=== PATIENT | female | born 1945 | race Caucasian/White ===

== ENCOUNTER 2019-12-30 15:34 | Emergency (ER) | payer MEDICARE, OTHER, SELFPAY ==
[2019-12-30 15:35] VITALS: BP 147/85; PULSE 70; RESP 19; TEMP 36.8; O2SAT 97; BMI 29.2
--- NOTE | 2019-12-30 15:40 | RAD_ITS ---
STUDY: X-RAY - LEFT SHOULDER REASON FOR EXAM: Female, 74 years old. FALL TECHNIQUE: 2 view(s) of the shoulder. COMPARISON: None. FINDINGS: There is moderate degenerative arthrosis of the glenohumeral articulation. There is degenerative arthrosis of the acromioclavicular joint without inferior osseous spur formation. Normal acromion. Nondisplaced spiral fracture through the proximal shaft of the left humerus. The soft tissue structures are unremarkable. Normal visualized pulmonary apex. RAD/Shoulder min 2 Views IMPRESSION: Nondisplaced spiral fracture through the proximal shaft of the left humerus. Electronically Signed: Fili Orr, at 15:53 EST , Service support ,
--- NOTE | 2019-12-30 16:40 | ED.VIS.UPPEX ---
History of Present Illness Chief Complaint: Fall Narrative: Patient presenting for evaluation secondary to a fall with a left arm injury. Patient reports that she had forgotten her cell phone and was trying to go back into the house and suffered a fall while she was going up stairs. She landed forcibly on her left arm. She denies hitting her head or loss of consciousness. No numbness or weakness. She is not on any sort of anticoagulants. She reports a moderate to severe amount of pain in her left arm worse with palpation and movement. Review of systems otherwise negative. Past Medical History - Allergies and Home Meds Allergies/Adverse Reactions: Allergies iodine Allergy (Verified 12/30/19 15:34) Swelling Primary Care Physician: Christie Martinez MD [Primary Care Provider] - Prior records reviewed: Yes Past Medical History: - - Hypertension, GERD, hyperlipidemia Smoking Status: Former smoker Review of Systems All systems negative except as indicated General: Denies: Chills, Fever, Sweats Eyes: Denies: Visual changes - bilaterally, Diplopia ENT: Denies: Rhinorrhea, Sore throat Cardiovascular: Denies: Chest pain, Palpitations Respiratory: Denies: Dyspnea, Cough, Dyspnea on exertion Gastrointestinal: Denies: Abdominal pain, Nausea, Vomiting, Diarrhea, Melena, Hematochezia Genitourinary: Denies: Dysuria, Hematuria, Frequency Musculoskeletal: Reports: Extremity Pain Skin: Denies: Rash, Wounds Neurological: Denies: Headache, Weakness, Numbness Physical Exam Vital Signs/Narrative: Vital Signs Temp Pulse Resp BP Pulse Ox 12/30/19 15:35 98.2 F 70 19 H 147/85 H 97 Inital Vital Signs reviewed: Yes Left Humerus: - - Pain on palpation of the proximal humerus with some swelling noted in the area. No significant deformity. Limited range of motion secondary to pain. Normal sensation over all dermatomes distally normal distal pulses. Normal distal motor and sensory exam of the radian, medial, and ulnar nerve dis General: Well nourished, Well developed, - - Airways patent, breath sounds equal bilateral, 2+ peripheral pulses bilaterally symmetric. GCS 15 out of 15. Head: Normocephalic, Atraumatic Eyes: Perrl, EOMI ENT: No Trauma, Moist Mucous Membranes Neck: Nontender, Full ROM Cardiovascular: Regular rate, Regular rhythm, No murmurs Respiratory: No distress, CTA bilaterally, Chest nontender Abdomen: Soft, Nontender, Nondistended, Normal bowel sounds Back: Nontender Skin: Normal color, No rash Neurological: Alert, Oriented x3, Cranial nerves II-XII grossly intact, Normal Strength, Normal Sensation Psychological: Normal affect Diagnostic/Tx/Re-eval Clinical Impression(s) from Imaging Studies Shoulder X-Ray 12/30/19 15:40 IMPRESSION: Nondisplaced spiral fracture through the proximal shaft of the left humerus. Electronically Signed: Fili Orr, at 15:53 EST , Service support , - Medical Decision Making Patient presented secondary to a arm injury. Primary survey required no intervention, secondary survey showed only injury to the patient's left arm. Radiographs by my personal review as well as radiology show a proximal humerus fracture. Patient was immobilized in a sling and swath. Patient requested referral to Dr. Dean. She will be discharged with a course of [place] for treatment of pain. ED Disposition - Plan for ED Patient: Disposition: Home or Assisted Living Diagnosis: Left humeral fracture Instructions: ED Fracture Upper Extremity Prescriptions: Hydrocodone Bitart/Apap 5-325 [[place] 5MG-325MG] 1 tab PO Q6H PRN PRN 3 Days #12 tab PRN Reason: Pain Prescription Printed Referrals: Trish Dean DO [STAFF PHYSICIAN] - As soon as possible
== END 2019-12-30 17:24 | disposition home or self-care (01) ==
PROVIDERS: Emergency Provider Emergency Medicine; PCP Internal Medicine
DX: S42.345A Nondisplaced spiral fracture of shaft of humerus, left arm, initial encounter for closed fracture (principal); E78.5 Hyperlipidemia, unspecified; K21.9 Gastro-esophageal reflux disease without esophagitis; I10 Essential (primary) hypertension; Z87.891 Personal history of nicotine dependence; W18.30XA Fall on same level, unspecified, initial encounter; Y93.01 Activity, walking, marching and hiking; Y92.009 Unspecified place in unspecified non-institutional (private) residence as the place of occurrence of the external cause; Y99.8 Other external cause status
CPT/HCPCS: 73030; 99284

== ENCOUNTER 2020-01-03 20:41 | Emergency (ER) | payer MEDICARE, OTHER, SELFPAY ==
[2020-01-03 20:42] VITALS: BP 152/112; PULSE 82; RESP 16; TEMP 37.1; O2SAT 96; BMI 35.2
--- NOTE | 2020-01-03 21:06 | ED.VIS.GEN ---
History of Present Illness Chief Complaint: Upper Extremity Injury Informant: Patient Narrative: 74-year-old female with past medical history of hypertension presents with concern for arm fracture. Patient had a fracture of her humerus on 12/29 which was 4 days ago. Patient was referred to orthopedic surgery. They contacted her today and stated that she needed traumatic orthopedic surgeon for surgical repair. Patient did not want to go to [place]. States that she is having swelling of her left arm and was concerned so called EMS. Past Medical History - Allergies and Home Meds Allergies/Adverse Reactions: Allergies iodine Allergy (Verified 01/03/20 20:48) Swelling Primary Care Physician: Christie Martinez MD [Primary Care Provider] - Prior records reviewed: Yes Past Medical History: - - HTN Surgical History: noncontributory Lives: Spouse/ Significant Other Smoking Status: Unknown if ever smoked Alcohol: None Drugs: None Review of Systems General: Denies: Chills, Fever, Sweats Eyes: Denies: Visual changes - bilaterally, Diplopia ENT: Denies: Rhinorrhea, Sore throat Cardiovascular: Denies: Chest pain, Palpitations Respiratory: Denies: Dyspnea, Cough, Dyspnea on exertion Gastrointestinal: Denies: Abdominal pain, Nausea, Vomiting, Diarrhea, Melena, Hematochezia Genitourinary: Denies: Dysuria, Hematuria, Frequency Musculoskeletal: Reports: Arthralgias. Denies: Back pain, Extremity Pain Skin: Denies: Rash, Wounds Neurological: Denies: Headache, Weakness, Numbness Physical Exam Vital Signs/Narrative: Vital Signs Temp Pulse Resp BP Pulse Ox 01/03/20 20:42 98.8 F 82 16 152/112 H 96 General: Well nourished, Well developed, No Acute Distress Head: Normocephalic, Atraumatic Eyes: Perrl, EOMI ENT: Moist mucous membranes, No rhinorrhea Neck: Supple, Nontender Cardiovascular: Regular rate, Regular rhythm, No murmurs Respiratory: No distress, CTA bilaterally, Chest nontender Abdomen: Soft, Nontender, Nondistended, Normal bowel sounds Back: Nontender, Normal Inspection Extremities: - - Left arm in sling. Strong palpable pulse. Mild edema. Skin: Normal color, No rash Neurological: Alert, Oriented x3, Cranial nerves II-XII grossly intact, Normal Strength, Normal Sensation Psychological: Normal affect, Normal Mood Diagnostic/Tx/Re-eval - Medical Decision Making Appears well and nontoxic. Vital signs within normal limits. Patient will be placed back in her sling and swath. Patient be given Dr. Mariely Watt to follow-up with. Asked to return for new or worsening symptoms. Impression: 1. Left humerus fracture ED Disposition - Plan for ED Patient: Disposition: Home or Assisted Living Instructions: ED Fracture Upper Extremity Referrals: Christie Martinez MD [Primary Care Provider] - 2 Days Additional Instructions: Please follow up with Dr. Mariely Watt. Call [phone] tomorrow for follow up appointment.
== END 2020-01-03 21:27 | disposition home or self-care (01) ==
PROVIDERS: Emergency Provider Emergency Medicine; PCP Internal Medicine
DX: S42.302D Unspecified fracture of shaft of humerus, left arm, subsequent encounter for fracture with routine healing (principal); I10 Essential (primary) hypertension; Z79.899 Other long term (current) drug therapy; X58.XXXD Exposure to other specified factors, subsequent encounter
CPT/HCPCS: 99284

== ENCOUNTER 2020-06-04 16:00 | Outpatient (RCR) | payer MEDICARE, OTHER, SELFPAY ==
--- NOTE | 2020-02-29 14:16 | HP.PTEVAL ---
Patient's Visit Information IRENE DIGGS is a 74 year old F referred to Physical Therapy by Out of Town Doctor with a diagnosis of Bilateral Shoulder- Closed Fracture of proximal end of left humerus. Date of Evaluation: 02/29/20 Physical Therapist: Emperatriz Fortune DPT - Visit Plan Frequency: 2x /Week Duration: 4 Weeks Plan: Focus on ROM on the left UE and strength/stabilization bilateral shoulders and postural control - Subjective Patient reports that she fell 12-30-2019 in her garage- and she called the squad- took her to [place]- she had a break of the humerus in the left- they discharged her to a MD in [place] and then they transfered her to trauma at [place]. Surgery at [facility] January [address] Winter. She had home therapy and then they think she is ready for outpatient- was discharged Thursday. She reports that the arm is doing well. She has recovered decent range of motion and she also has problems on her right shoulder. Left: doesn't think its pain more discomfort- most of the time painfree. Right hand dominate. Right: Worst: 5/10 Best: 0/10. Has been doing exercises for it. Its worse in the AM and reaching. No new N/T in the fingers. When she does have pain its more in the shoulder-does not radiate. No neck pain, blurred vision or dizziness- no loss of finger dexterity or project admin strength. Sleep: not disturned- is sleeping in a lift chair. Goals: get the arm back to as good as she can get it which should be pretty good. Did give her a home exericise program and is using the pulleys daily. PMHx/Meds: no changes. - Objective Posture: FH, RS- can correct with verbal cues. Gait: no deviation noted good arm swing and trunk rotation. Palpation: not tender. Observation: incision healing well. ROM: Right: WFL in all planes Left:Flexion: 100 degrees Abd: 70 degrees, IR: belt line ER: 40 degrees. Bilateral Elbow/Wrist/Hand: WNL. Strength: Scap: fair minus, Right: 4-/5 throughout shoulder, 4+/5 elbow Oven Builder: 40/40/40 Left: Shoulder: 4/5, Elbow: 4+/5, Oven Builder 40/40/40. Special Test: Right: impingment: negative, Empty can: positive. Sensation: WNL - Goals Goal 1:: Patient will be I with HEP and progression Goal Time Frame: 4-6 Weeks Goal 2:: Patient will demo full AROM of the left shoulder Goal Time Frame: 4-6 Weeks Goal 3:: Patient will maintain proper posture t/o tx session to demo increase scap s/s. Goal Time Frame: 4-6 Weeks Goal 4:: Patient will report no pain for 1 week Goal Time Frame: 4-6 Weeks - Rehabilitation Potential Physical Therapy Diagnosis: Patient presents s/p fall with fracture and repair to the left humerus. She has decreased ROM,strength, flex and muscular endurance leading to poor posture and increased pain with ADL's. Rehabilitation Potential: Fair - Anticipated Interventions Patient/Client Instruction: Educate patient on: Benefits of Fitness Program Therapeutic Exercise to Include: Strength training, Endurance training, Agility training, Body mechanics, Postural training, Flexibilty training, Neuromotor development, Passive ROM, Active ROM, Dynamic Lumbar Stabilization, Scapular Strength/Stabilization For the Purpose of:: To improve muscle performance and motor function TENS: Yes Cryotherapy (ice pack, ice massage): Yes Thermo therapy (hot pack): Yes Ultrasound (thermal/non thermal): No Thank you for the opportunity to evaluate your patient. For Medicare and Medicare HMO plans, please review the plan of care and approve it. It will need to be FAXED BACK to us at [phone] for Medicare purposes. For Medicare only, by signing this I certify the plan of care. Please let me know if there are questions or concerns regarding this plan of care. Physician Signature: Date:
--- NOTE | 2020-06-04 16:24 | HP.PTDCSUM_ITS ---
It has been my pleasure to treat IRENE DIGGS referred by Dr. Ebonie Winter MD, with the diagnosis of Bilateral Shoulder- Closed Fracture of proximal end of left humerus for a total of 15 visit(s). Discharge Date: Please see the following information for a summary of their discharge status. Subjective: Patient reports that she can reach her cupboards better. She has lumps and bumps in the arm that give her a little bit of sensation. Still sleeping in the reclyner. The top shelf if the cupboard is tricky but she can do it with caution. She has discomfort but not painful. L UE Pain Intensity (Out of 10): Unrated % Improvement: 85 Objective/Function: Posture: FH, RS- can correct with verbal cues. Gait: no deviation noted good arm swing and trunk rotation. ROM: Right: WFL in all planes Left:Flexion: 120 degrees Abd: 100 degrees, IR: belt line ER: 45 degrees. Bilateral Elbow/Wrist/Hand: WNL. Strength: Scap: fair, Right: 4/5 throughout shoulder, 4+/5 elbow Manager Operations And Procurement: Left: Shoulder: 4/5, Elbow: 4+/5, Goal 1:: Patient will be I with HEP and progression Goal Progress: Goal Met Goal 2:: Patient will demo full AROM of the left shoulder Goal Progress: Progressing Goal 3:: Patient will maintain proper posture t/o tx session to demo increase scap s/s. Goal Progress: Progressing Goal 4:: Patient will report no pain for 1 week Goal Progress: Progressing Plan: Discharge to I home exercise program- encouraged to call if questions or concners. If there are questions or concerns regarding this patient's physical therapy, please feel free to call me at [phone]. Thank you for the referral of this patient. Sincerely, Emperatriz Fortune DPT
== END 2020-06-04 19:00 | disposition home or self-care (01) ==
LOC: PT 16:00
PROVIDERS: PCP Internal Medicine; Referring Provider Orthopaedic Surgery Hand Surgery; Visit Provider Orthopaedic Surgery Hand Surgery
DX: S42.202D Unspecified fracture of upper end of left humerus, subsequent encounter for fracture with routine healing (principal); M89.8X9 Other specified disorders of bone, unspecified site
CPT/HCPCS: 97110; 97162; 97164

== ENCOUNTER 2021-05-05 19:21 | Emergency (ER) | payer MEDICARE, OTHER, SELFPAY ==
[2021-05-05 19:23] VITALS: BP 169/16; PULSE 73; RESP 16; TEMP 36.4; O2SAT 96; BMI 28.8
--- NOTE | 2021-05-05 19:39 | EKG12_ITS ---
Test Reason : HYPERTENSION Blood Pressure : / mmHG Vent. Rate : 058 BPM Atrial Rate : 058 BPM P-R Int : 224 ms QRS Dur : 088 ms QT Int : 432 ms P-R-T Axes : 044 018 048 degrees QTc Int : 424 ms Sinus bradycardia with 1st degree A-V block Otherwise normal ECG Confirmed by KENTON BOYD, DAVID ([id number]), clinical editor KEY PACHECO ([id number]) on 05/07/2021 9:43:39 AM Referred By: ADALBERTO Confirmed By:DAVID FUNG MD
--- NOTE | 2021-05-05 19:40 | EDS_ITS ---
HPI History of Present Illness Chief Complaint: Hypertension Detail of Chief Complaint: Hypertension that was noted today Informant: patient Narrative Narrative: Patient presents to the emergency department complaining of high blood pressure. Patient states that she was having dinner with a friend who noticed that she was flushed and then asked to check her blood pressure to which the patient agreed and it was noted that her blood pressure initially was 215/85. Patient denied chest pain or headache or shortness of breath. Patient had been treated for hypertension but stopped taking her medications 3 to 5 years ago. Patient does have history of dementia. Patient currently completely asymptomatic. She does not know what her blood pressure normally runs. Prior similar symptoms: Yes [facility] Medical History (Updated 05/05/21 @ 21:[address] Vibha Yeung, DO) Dementia Hypertension Home Medications bupropion HCl 1 tab PO DAILY 08/27/13 [History Last Taken Unknown] omeprazole 20 mg PO DAILY 08/27/13 [History Last Taken Unknown] pravastatin 20 mg PO DAILY 08/27/13 [History Last Taken Unknown] amlodipine [Norvasc] 5 mg PO DAILY #30 tab 05/05/21 [Rx Last Taken Unknown] Allergy/AdvReac Type Severity Reaction Status Date / Time iodine Allergy Swelling Verified 05/05/21 19:24 Social History Smoking Status: Never smoker [facility] ED Constitutional Constitutional ED: Reports systems reviewed and no addt'l complaints, except as documented; Denies body ache(s), change in weight or chills Eyes Eyes: Denies acute decrease in peripheral vision, change in vision, double vision or loss of vision ENT ENT ED: Reports none; Denies ear pain, lip swelling, loss taste/smell, neck pain, otalgia or sore throat Cardiovascular Cardiovascular: Reports none; Denies abdominal pain, chest pain with activity, leg edema, lightheadedness, palpitations, rapid heart rate or syncope Respiratory/Chest Respiratory/Chest: Reports none; Denies change in mental status, dry cough, dyspnea, hemoptysis, shortness of breath at rest or shortness of breath with exertion Gastrointestinal Gastrointestinal: Reports none; Denies abdominal pain, change in stool character, diarrhea, hematemesis, hematochezia, melena, rectal bleeding or vomiting Genitourinary Genitourinary ED: Reports none; Denies abdominal discomfort, anuria, dysuria, genital pain or polyuria Musculoskeletal Musculoskeletal: Reports none; Denies arthralgias, back pain, difficulty walking, extremity pain, muscle weakness or myalgias Integumentary Reports none; Denies abscess or rash Neurologic Neurologic: Reports none; Denies abnormal gait, confusion, focal weakness, frequent falls, headache(s), loss of vision, numbness, paresthesias, radicular pain, vertigo or weakness Psychiatric Psychiatric: Reports systems reviewed and no addt'l complaints, except as documented and none; Denies behavioral changes, confusion, difficulty concentrating, hallucinations, suicidal ideation, tactile hallucinations or visual hallucinations Endocrine Endocrinology: Denies none, cold intolerance, excessive sweating, fatigue or heat intolerance Hematologic/Lymphatic Hematologic/Lymphatic: Reports none; Denies anemia, easy bleeding or easy bruising Allergic/Immunologic Allergic/Immunologic ED: Denies as per HPI, none, lip swelling, mouth swelling, throat swelling, tongue swelling or hives EXAM Physical Exam Const Vital Signs: 05/05/21 19:23 05/05/21 19:43 05/05/21 20:45 Temperature 97.5 F L Temperature Source Temporal Pulse Rate 73 70 Respiratory Rate 16 20 H Blood Pressure 169/16 H 170/80 H 168/84 H Blood Pressure Mean 67 110 112 Pulse Ox 96 Oxygen Delivery Method Room Air Positive well nourished and well developed General Appearance ED: well developed and NAD HEENT Reports TM's clear and moist mucous membranes normocephalic and atraumatic; Negative for trauma or tenderness Tympanic Membrane ED: Yes TM's clear Eyes PERRL and EOMs intact bilaterally General Eye ED: Negative for pale conjunctiva or scleral icterus Neck no lymphadenopathy, supple and no JVD General: Negative for tenderness Chest Wall inspection of chest normal and palpation of chest normal Chest: Negative for tenderness Resp normal respiratory effort and clear to auscultation bilaterally Effort and Inspection: Negative for respiratory distress or pain with movement Auscultation: Negative for rhonchi, wheezes or diminished lung sounds Cardio regular rate, regular rhythm, S1 normal heart sound, S2 normal heart sound and no murmurs Peripheral Pulses: pulses 2+ throughout GI normal to inspection, nondistended, normoactive bowel sounds, soft to palpation, non-tender, non-distended and no masses Back/Spine no CVA tenderness and no thoracic nor lumbar tenderness Extremity normal to inspection General Extremety ED: Negative for edema General Extremity: Negative for edema Neuro oriented x3, CN's II-XII intact bilaterally, no sensory deficits noted and gait normal Sensorium / Orientation: awake, alert, oriented to person, oriented to place and oriented to time Motor Exam: strength 5/5 throughout and strength abnormal Psych mental status grossly normal Skin no rashes or lesions noted and no wounds MDM MDM MDM Narrative Medical decision making narrative: IV line established on arrival. Patient placed on a monitor technician. Blood pressure in the department without any treatment was 160s over 80s. Lab work-up was unremarkable. EKG was unremarkable. Patient is asymptomatic. I will attempt to contact her primary care physician regarding starting her on a blood pressure medicine as patient cannot remember what she was last supposed to be on. I will otherwise empirically start her on Norvasc 5 mg p.o. daily. Lab Data Attestation: I reviewed the patient's lab results. Labs: Laboratory Results - last 24 hr 05/05/21 05/05/21 19:52 19:52 WBC 6.1 RBC 4.38 Hgb 14.1 Hct 40.7 MCV 92.9 MCH 32.2 H MCHC 34.6 RDW Std Deviation 42.0 RDW Coeff of Gabriella 12.3 Plt Count 204 MPV 8.9 Immature Gran % (Auto) 0.200 Neut % (Auto) 61.5 Lymph % (Auto) 26.7 [place] % (Auto) 9.7 Eos % (Auto) 1.6 Baso % (Auto) 0.3 Absolute Neuts (auto) 3.8 Absolute Lymphs (auto) 1.63 Nucleated RBC % 0 Sodium 143 Potassium 3.3 L Chloride 110 H Carbon Dioxide 29.0 Anion Gap 4 L BUN 19 H Creatinine 0.82 Estim Creat Clear Calc 60.72 Est GFR (MDRD) Af Amer 87 Est GFR (MDRD) Non-Af 72 BUN/Creatinine Ratio 23.1 H Glucose 79 Calcium 9.4 Troponin I High Sens 9 Discharge Plan Triage Chief Complaint: Hypertension ED Provider: Vibha Yeung Dx/Rx/DC Orders Clinical Impression: Hypertension Instructions: ED Hypertension, Established, ED Hypertension New Begin Treatment Prescriptions: New amlodipine [Norvasc] 5 mg tablet 5 mg PO DAILY Qty: 30 RF: 0 No Action bupropion HCl 75 MG tablet 1 tab PO DAILY RF: 0 omeprazole 20 MG capsule 20 mg PO DAILY RF: 0 pravastatin 20 MG tablet 20 mg PO DAILY RF: 0 Primary Care Provider: Christie Maritnez Referrals: Christie Martinez MD [Primary Care Provider] - 3-5 Days Disposition Disposition: Home, Self Care
[2021-05-05 19:43] VITALS: BP 170/80
[2021-05-05 19:58] LABS: Absolute Lymphocyte Count 1.63 X10^3/uL (0.83-4.51); Absolute Neutrophil Count 3.8 X10^3/uL (2.0-7.7); Basophil# 0.02 X10^3/uL; Basophil% 0.3 % (0-1); Eosinophils% 1.6 % (0-5); Hematocrit 40.7 % (37-47); Hemoglobin 14.1 g/dL (12.0-15.0); Lymphocyte # 1.63 X10^3/ul (0.83-4.51); Lymphocyte % 26.7 % (19-41); Mean Corp Hgb Conc 34.6 g/dL (32-36); Mean Corpuscular Hgb 32.2 pg (27.0-32.0); Mean Corpuscular Volume 92.9 fL (81-99); Mean Platelet Vol. 8.9 fl (6.2-12.0); Monocyte# 0.59 X10^3/uL; Monocyte% 9.7 % (0-10); NRBC Flagged by Analyzer 0 % (0-5); Neutrophil # 3.76 X10^3/uL (2.7-7.7); Neutrophil % 61.5 % (47-70); Platelet Count 204 K/mm3 (150-450); RBC Distribution Width CV 12.3 % (11.6-14.6); Red Blood Count 4.38 M/mm3 (4.2-5.4); White Blood Count 6.1 K/mm3 (4.4-11.0)
[2021-05-05 20:19] LABS: Anion Gap 4 (5-15); BUN 19 mg/dL (7-18); BUN/Creat Ratio 23.1 RATIO (10-20); Calcium,Total 9.4 mg/dL (8.5-10.1); Chloride 110 mmol/L (98-107); Creatinine, Serum 0.82 mg/dL (0.55-1.02); EST Glomerular Filtration Rate 72 mL/min (>60); Est Glom Filt Rate - Afr Amer 87 mL/min (>60); Estimated Creatinine Clearance 60.72 ml/min; Glucose 79 mg/dL (74-106); Potassium 3.3 mmol/L (3.5-5.1); Sodium Level 143 mmol/L (136-145); Troponin-I HS 9 pg/mL (3.0-54.0)
[2021-05-05 20:45] VITALS: BP 168/84; PULSE 70; RESP 20
[2021-05-05] MEDS: amLODIPine 5 MG Tablet PO (21:14)
[2021-05-05] MEDS: Potassium Chloride Oral Tablet 20 MEQ 40 MEQ PO (21:14)
[2021-05-05 21:16] VITALS: BP 163/76; PULSE 62; RESP 18
--- NOTE | 2021-05-06 11:05 | CASEMGMT ---
BLAZE DAVILA ED follow-up: Date of ER visit: 05/05/2021 Presenting ER complaint: hypertension BLAZE DAVILA placed call to patient's telephone number listed on demographics and patient answered. BLAZE DAVILA introduced self and role at [facility]. Patient states feeling pretty good today. Denies pain, dizziness or shortness of breath. Patient reports she discovered once she arrived home that the medication she was prescribed in ER (Norvasc 5 mg) is the same medication she is prescribed by PCP and takes every day. Patient reports her medications come pre-packaged by [facility] and I just check to make sure I have the right number of medications but I don't check to see what they are. Patient encouraged to call PCP office today to schedule follow-up appointment and discuss medications. Patient instructed to monitor BP and keep log of readings to take with her to follow-up appointment. Voices understanding. Patient confirms she has a home BP monitor but I will have to find it. Patient denies questions, needs or concerns. BLAZE Bishop CM
== END 2021-05-05 21:17 | disposition home or self-care (01) ==
PROVIDERS: Emergency Provider Emergency Medicine; PCP Internal Medicine; Visit Provider Emergency Medicine
DX: I10 Essential (primary) hypertension (principal); Z79.899 Other long term (current) drug therapy
CPT/HCPCS: 80048; 84484; 85025; 93005; 99284; A4216

== ENCOUNTER 2021-11-04 00:01 | Emergency (ER) | payer MEDICARE, OTHER, SELFPAY ==
[2021-11-04 00:02] VITALS: BP 133/101; PULSE 72; RESP 14; TEMP 36.3; O2SAT 98; BMI 30.5
[2021-11-04] MEDS: Famotidine 200 MG/20 ML MDV 40 MG in 0.9% Normal Saline (Pres. free 6 ML 300 MG IV (00:34)
[2021-11-04] MEDS: MethylPREDNISolone 125 MG/2 ML Vial IV (00:40)
[2021-11-04] MEDS: DiphenhydrAMINE 50 MG/ML Syringe IV (00:46)
--- NOTE | 2021-11-04 01:24 | EDS_ITS ---
HPI History of Present Illness Chief Complaint: Rash Narrative Narrative: Patient is a 75-year-old female past medical history of hypertension hyperlipidemia GERD and anxiety. She states she was outside today cutting multiple branches and working in the yard. She states that after this she came inside and ate some fresh vegetables that she had grown from her garden. She states this evening she was laying down to go to bed and felt like there were bugs crawling on her. She states she got up and looked in the mirror and noticed she had a rash. She states no one else at home has the rash. She denies any new exposures chest pain or shortness of breath or difficulty swallowing but secondary to her symptoms comes in for evaluation. [facility] Medical History (Updated 11/04/21 @ 01:[address] Yusuf Corcoran DO) Dementia Hypertension Home Medications bupropion HCl 75 mg tablet 1 tab PO DAILY 08/27/13 [History Last Taken Unknown] omeprazole 20 mg capsule,delayed release 20 mg PO DAILY 08/27/13 [History Last Taken Unknown] pravastatin 20 mg tablet 20 mg PO DAILY 08/27/13 [History Last Taken Unknown] amlodipine 5 mg tablet (Norvasc) 5 mg PO DAILY #30 tabs 05/05/21 [Rx Last Taken Unknown] amlodipine 5 mg tablet (Norvasc) 5 mg PO DAILY 30 days #30 tabs 11/04/21 [Rx Last Taken Unknown] prednisone 20 mg tablet 20 mg PO DAILY 5 days #5 tabs 11/04/21 [Rx Last Taken Unknown] Allergy/AdvReac Type Severity Reaction Status Date / Time iodine Allergy Swelling Verified 11/04/21 00:32 shellfish derived Allergy Rash Verified 11/04/21 00:32 Social History Smoking Status: Never smoker [facility] ED Constitutional Constitutional ED: Denies chills or fever(s) ENT ENT ED: Denies sore throat Cardiovascular Cardiovascular: Denies chest pain Respiratory/Chest Respiratory/Chest: Denies cough or dyspnea Gastrointestinal Gastrointestinal: Denies abdominal pain, diarrhea, nausea or vomiting Genitourinary Genitourinary ED: Denies dysuria Musculoskeletal Musculoskeletal: Denies myalgias Integumentary Reports rash Neurologic Neurologic: Denies headache(s) Hematologic/Lymphatic Hematologic/Lymphatic: Denies easy bleeding or easy bruising EXAM Physical Exam Const Vital Signs: 11/04/21 00:02 11/04/21 01:30 Temperature 97.3 F L Temperature Source Temporal Pulse Rate 72 57 L Respiratory Rate 14 18 Blood Pressure 133/101 H 144/77 H Blood Pressure Mean 111 Pulse Ox 98 99 Positive well nourished and well developed General Appearance ED: well developed HEENT Reports moist mucous membranes HEENT Narrative: No tongue or lip swelling no oral lesions no airway edema or compromise Eyes PERRL and EOMs intact bilaterally Neck supple and no JVD Resp normal respiratory effort and clear to auscultation bilaterally Cardio regular rate and regular rhythm Extremity normal to inspection Neuro oriented x3 and CN's II-XII intact bilaterally Sensorium / Orientation: alert Psych Psych Narrative: Patient has a nervous/anxious affect Skin Skin Narrative: Patient has erythematous blanchable urticarial-like lesions to the bilateral arms abdomen chest and upper back consistent with allergic reaction without secondary changes to suggest infection. No involvement of the palms or soles MDM MDM MDM Narrative Medical decision making narrative: Patient presented to the ER hypertensive but has a history of this and states she has not been taking her medication. Otherwise she is in no acute respiratory distress. The rash appears inflammatory not infectious and therefore I feel no need for imaging or laboratory studies. Patient was given IV Solu-Medrol Benadryl and Pepcid. On reevaluation the rash is resolving and she remains in no acute distress. Therefore patient will be started on prednisone to keep the inflammation under control but is otherwise safe for discharge Discharge Plan Triage Chief Complaint: Rash ED Provider: Yusuf Corcoran Dx/Rx/DC Orders Clinical Impression: Acute allergic reaction, Hypertension Instructions: ED Hypertension, Established, Allergy Overview Prescriptions: New amlodipine [Norvasc] 5 mg tablet 5 mg PO DAILY 30 Days Qty: 30 0RF prednisone 20 mg tablet 20 mg PO DAILY 5 Days Qty: 5 0RF No Action bupropion HCl 75 MG tablet 1 tab PO DAILY omeprazole 20 MG capsule 20 mg PO DAILY pravastatin 20 MG tablet 20 mg PO DAILY amlodipine [Norvasc] 5 mg tablet 5 mg PO DAILY Qty: 30 0RF Primary Care Provider: Christie Martinez Referrals: Christie Martinez MD [Primary Care Provider] - Activity Restrictions/Additional Instructions: You may continue to take Benadryl up to 3 times a day if needed for increased itch control. Please return to the ER should you have any further concerns Disposition Disposition: Home, Self Care Discharge Date/Time: 11/04/21 01:33
[2021-11-04 01:30] VITALS: BP 144/77; PULSE 57; RESP 18; O2SAT 99
== END 2021-11-04 01:33 | disposition home or self-care (01) ==
PROVIDERS: Emergency Provider Emergency Medicine; PCP Internal Medicine; Visit Provider Emergency Medicine
DX: T78.40XA Allergy, unspecified, initial encounter (principal); F41.9 Anxiety disorder, unspecified; I10 Essential (primary) hypertension; E78.5 Hyperlipidemia, unspecified; L50.0 Allergic urticaria; Z79.52 Long term (current) use of systemic steroids; Z79.899 Other long term (current) drug therapy
CPT/HCPCS: 96374; 96375; 99283; 99284; A4216; J3490

== ENCOUNTER 2021-11-04 22:11 | Emergency (ER) | payer MEDICARE, OTHER, SELFPAY ==
[2021-11-04 22:13] VITALS: BP 161/72; PULSE 75; RESP 16; TEMP 36.6; O2SAT 98; BMI 30.2
[2021-11-04 22:20] VITALS: BP 161/72; PULSE 67; RESP 15; O2SAT 98
--- NOTE | 2021-11-04 22:24 | EX.ED.DYSGE1 ---
HPI History of Present Illness Chief Complaint: Allergic Reaction Informant: patient Onset/Context/Timing Onset: Yesterday Narrative Narrative: Patient presented to the emergency room last evening after developing hives. She believes it was secondary to eating tomatoes from her garden. She presents back tonight because hives are still present. She just picked up the prescriptions from the pharmacy this evening but has not taken them yet. She did take 1 dose of [id number] sertraline prior to arrival. Patient denies shortness of breath or throat tightness. [facility] Medical History Dementia Hypertension Home Medications bupropion HCl 75 mg tablet 1 tab PO DAILY 08/27/13 [History Last Taken Unknown] omeprazole 20 mg capsule,delayed release 20 mg PO DAILY 08/27/13 [History Last Taken Unknown] pravastatin 20 mg tablet 20 mg PO DAILY 08/27/13 [History Last Taken Unknown] amlodipine 5 mg tablet (Norvasc) 5 mg PO DAILY #30 tabs 05/05/21 [Rx Last Taken Unknown] amlodipine 5 mg tablet (Norvasc) 5 mg PO DAILY 30 days #30 tabs 11/04/21 [Rx Last Taken Unknown] prednisone 20 mg tablet 20 mg PO DAILY 5 days #5 tabs 11/04/21 [Rx Last Taken Unknown] Allergy/AdvReac Type Severity Reaction Status Date / Time iodine Allergy Swelling Verified 11/04/21 00:32 shellfish derived Allergy Rash Verified 11/04/21 00:32 Social History Smoking Status: Never smoker [facility] ED Constitutional Constitutional ED: Denies chills or fever(s) Eyes Eyes: Denies change in vision or discharge from eye(s) ENT ENT ED: Denies discharge from eye(s), rhinorrhea or sore throat Cardiovascular Cardiovascular: Denies chest pain or palpitations Respiratory/Chest Respiratory/Chest: Denies cough or dyspnea Gastrointestinal Gastrointestinal: Denies abdominal pain, diarrhea, nausea or vomiting Genitourinary Genitourinary ED: Denies difficulty urinating or dysuria Musculoskeletal Musculoskeletal: Denies back pain or extremity pain Integumentary Reports rash; Denies Abrasions Neurologic Neurologic: Denies headache(s) or weakness Allergic/Immunologic Allergic/Immunologic ED: Denies lip swelling or urticaria EXAM Physical Exam Const Vital Signs: 11/04/21 22:13 11/04/21 22:20 Temperature 97.8 F Temperature Source Axillary Pulse Rate 75 67 Respiratory Rate 16 15 Blood Pressure 161/72 H 161/72 H Blood Pressure Mean 101 101 Pulse Ox 98 98 Oxygen Delivery Method Room Air Room Air Positive well nourished and well developed General Appearance ED: well developed HEENT Reports normocephalic and head/scalp atraumatic HEENT Narrative: No tongue edema noted. Posterior pharynx exam normal. Eyes PERRL and EOMs intact bilaterally Neck supple Chest Wall inspection of chest normal and palpation of chest normal Resp normal respiratory effort and clear to auscultation bilaterally Cardio regular rate and regular rhythm GI normal to inspection, nondistended, normoactive bowel sounds Palpation: soft Back/Spine no CVA tenderness Extremity normal to inspection Neuro oriented x3 and no sensory deficits noted Sensorium / Orientation: alert Motor Exam: strength 5/5 throughout Psych mental status grossly normal Skin Skin Narrative: Mild scattered urticarial lesions over the upper extremities. No open wounds. No vesicles. MDM MDM MDM Narrative Medical decision making narrative: Patient was given IV Benadryl and Solu-Medrol with p.o. Pepcid. Treatment and Re-Evaluation Narrative: On repeat evaluation patient's hives are improved. She continues to have no airway difficulty. 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 Return instructions provided. Discharge Plan Triage Chief Complaint: Allergic Reaction ED Provider: Deborah Graves Dx/Rx/DC Orders Clinical Impression: Acute allergic reaction, Urticaria Instructions: ED Hives (Adult) Prescriptions: No Action bupropion HCl 75 MG tablet 1 tab PO DAILY omeprazole 20 MG capsule 20 mg PO DAILY pravastatin 20 MG tablet 20 mg PO DAILY amlodipine [Norvasc] 5 mg tablet 5 mg PO DAILY Qty: 30 0RF amlodipine [Norvasc] 5 mg tablet 5 mg PO DAILY 30 Days Qty: 30 0RF prednisone 20 mg tablet 20 mg PO DAILY 5 Days Qty: 5 0RF Primary Care Provider: Christie Martinez Referrals: Christie Martinez MD [Primary Care Provider] - 1 Week if not improving Disposition Disposition: Home, Self Care
[2021-11-04] MEDS: DiphenhydrAMINE 50 MG/ML Syringe 25 MG IV (23:20)
[2021-11-04] MEDS: Famotidine 20 MG Tablet 40 MG PO (23:21)
[2021-11-04] MEDS: MethylPREDNISolone 125 MG/2 ML Vial IV (23:21)
[2021-11-05 00:21] VITALS: BP 136/77; PULSE 75; RESP 16; O2SAT 97
== END 2021-11-05 00:32 | disposition home or self-care (01) ==
PROVIDERS: Emergency Provider Emergency Medicine; PCP Internal Medicine; Visit Provider Emergency Medicine
DX: T78.40XA Allergy, unspecified, initial encounter (principal); I10 Essential (primary) hypertension; L50.9 Urticaria, unspecified; Z79.52 Long term (current) use of systemic steroids
CPT/HCPCS: A4216

== ENCOUNTER 2023-01-21 10:43 | Emergency (ER) | payer MEDICARE, SELFPAY ==
[2023-01-21 10:44] VITALS: BP 166/130; PULSE 86; RESP 16; TEMP 36.2; O2SAT 98; BMI 28.0
--- NOTE | 2023-01-21 11:05 | EX.ED.VIS.UR ---
HPI HPI - URI History of Present Illness Chief Complaint: Cold Sx Informant: patient Onset/Context/Timing Onset: Today and Yesterday Context: Gradual Onset Timing: Continuous Current Severity: Mild Maximum Severity: Mild Associated Symptoms Associated Symptoms: Positive for Myalgias, Nonproductive cough and - (Sore throat. Mild cough.) Narrative Narrative: 77-year-old history of hypertension. States has had nonproductive cough and sore throat since yesterday. No fever. No vomiting. No diarrhea. No shortness of breath. Able to swallow. H EENT exam TMs normal bilaterally. Posterior pharynx is normal. There is no erythema no exudate. No swelling. Tonsils are nonenlarged. No drooling. No stridor. Neck nontender. No lymphadenopathy. No meningismus. Lungs clear to auscultation bilateral. Heart regular rhythm no murmur. Abdomen soft nontender. Moving all 4 extremities. She is awake alert. Answering questions. She has a hoarse voice. Prior similar symptoms: Yes Recent Illness/Hospitalization: No ROS ROS ED ROS Narrative Cough. Sore throat. Has had myalgias. Review of Systems ROS Unobtainable: Denies due to encephalopathy Constitutional Constitutional ED: Denies chills or fever(s) Eyes Eyes: Denies blurry vision ENT ENT ED: Reports sore throat; Denies ear pain or rhinorrhea Cardiovascular Cardiovascular: Denies chest pain or palpitations Respiratory/Chest Respiratory/Chest: Reports cough; Denies dyspnea or dyspnea on exertion Gastrointestinal Gastrointestinal: Denies abdominal pain Genitourinary Genitourinary ED: Denies dysuria or hematuria Musculoskeletal Musculoskeletal: Denies arthralgias, back pain, myalgias or neck pain Integumentary Denies abscess or Abrasions Neurologic Neurologic: Denies headache(s) Psychiatric Psychiatric: Denies anxiety Endocrine Endocrinology: Denies cold intolerance or heat intolerance Hematologic/Lymphatic Hematologic/Lymphatic: Denies easy bleeding or easy bruising Allergic/Immunologic Allergic/Immunologic ED: Denies mouth swelling, tongue swelling or urticaria [facility] Medical History Dementia Hypertension Home Medications bupropion HCl 75 mg tablet 1 tab PO DAILY 08/27/13 [History Last Taken Unknown] omeprazole 20 mg capsule,delayed release 20 mg PO DAILY 08/27/13 [History Last Taken Unknown] pravastatin 20 mg tablet 20 mg PO DAILY 08/27/13 [History Last Taken Unknown] amlodipine 5 mg tablet (Norvasc) 5 mg PO DAILY #30 tabs 05/05/21 [Rx Last Taken Unknown] amlodipine 5 mg tablet (Norvasc) 5 mg PO DAILY 30 days #30 tabs 11/04/21 [Rx Last Taken Unknown] prednisone 20 mg tablet 20 mg PO DAILY 5 days #5 tabs 11/04/21 [Rx Last Taken Unknown] Allergy/AdvReac Type Severity Reaction Status Date / Time iodine Allergy Swelling Verified 01/21/23 10:44 shellfish derived Allergy Rash Verified 01/21/23 10:44 Social History Smoking Status: Never smoker EXAM Physical Exam Narrative Exam Narrative: Well-appearing 77-year-old female. Vital signs stable afebrile. Pulse ox 98% on room air no signs hypoxia. H EENT exam unremarkable. Moist mucous membranes. Posterior pharynx is normal. There is no erythema or exudate. There is no tonsillar swelling. She has no drooling or stridor. She does have a hoarse voice. Neck nontender. No lymphadenopathy. No meningismus. Lungs clear to auscultation bilaterally. Heart regular rhythm no murmur. Abdomen soft nontender. Moving all 4 extremities. Nontender no edema. Neurologically she is awake alert with no focal motor deficits. Exam is consistent with a viral syndrome. Const Vital Signs: 01/21/23 10:44 01/21/23 10:43 Temperature 97.2 F L Temperature Source Temporal Pulse Rate 86 Respiratory Rate 16 Respiratory Effort Normal Respiratory Pattern Normal Blood Pressure 166/130 H Blood Pressure Mean 142 Pulse Ox 98 Oxygen Delivery Method Room Air Positive well nourished and well developed; Negative for obese, cachectic or contractures General Appearance ED: well developed and NAD; Negative for cachectic, contractures, cyanotic, diaphoretic or pallor Nutritional Appearance: Negative for cachectic or obese HEENT Reports moist mucous membranes; Denies dry mucous membranes normocephalic and atraumatic; Negative for scalp tenderness Face and Sinus: Negative for sinus tenderness Mouth ED: No dry mucous membranes Mouth: No dry mucous membranes Teeth and Gingiva: Negative for caries Throat: posterior oropharynx normal; Negative for tonsils abnormal or posterior oropharynx abnormal Eyes PERRL and EOMs intact bilaterally General Eye ED: Negative for pale conjunctiva, scleral icterus or other Neck no lymphadenopathy, supple, no meningeal signs and no JVD General: Negative for anterior neck swelling or lymphadenopathy Resp normal respiratory effort and clear to auscultation bilaterally Effort and Inspection: Negative for retractions Auscultation: Negative for rales, rhonchi or wheezes Cardio S1 normal heart sound, S2 normal heart sound and no murmurs Rate: regular rate; Negative for bradycardia or tachycardic Rhythm: regular rhythm; Negative for abnormal rhythm GI non-tender, non-distended and no masses Auscultation: normoactive bowel sounds Palpation: Negative for soft, tender or guarding Back/Spine no CVA tenderness and normal ROM General Back: Negative for CVA tenderness Cervical Spine: Negative for cervical spine tenderness Thoracic Spine / Upper Back: Negative for thoracic spinal tenderness Lumbar Spine / Lower Back: Negative for lumbar spinal tenderness Sacrum: Negative for tenderness Extremity normal to inspection and full ROM General Extremety ED: Negative for cyanosis, tenderness or other findings General Extremity: Negative for cyanosis or other findings Neuro oriented x3 and CN's II-XII intact bilaterally Sensorium / Orientation: alert, oriented to person, oriented to place and oriented to time; Negative for orientation impaired, lethargic or stuporous Motor Exam: strength 5/5 throughout Psych mental status grossly normal Appearance: Negative for other Attitude: No agitated Mood & Affect: Negative for depressed, anxious or tearful Skin General Skin Exam: Negative for jaundice or pallor Lesions: no lesions Rashes: no rashes Trauma: Negative for abrasion or laceration MDM MDM MDM Narrative Medical decision making narrative: 77-year-old female URI symptoms. Exam seems viral. She does not need a chest x-ray. We will obtain a rapid strep COVID and influenza. ED exam patient is doing well at 12:30 PM. We discussed her test results. She is COVID-positive. She will be discharged home. She feels comfortable going home. She meets no criteria for admission. Fluids and rest. Tylenol. Follow-up with your doctor if not improving or return if worse. History & Record Review Discussion w/independent historian: Patient Additional record(s) reviewed:: Prior inpatient record, Prior outpatient record, Prior ED visit and Prior labs Lab Data Attestation: I reviewed the patient's lab results. Lab results narrative: Rapid COVID test positive. Influenza and rapid strep negative. Discharge Plan Triage Chief Complaint: Cold Sx ED Provider: Luis Fernando Núñez Dx/Rx/DC Orders Clinical Impression: COVID Instructions: Human Coronaviruses Prescriptions: No Action bupropion HCl 75 MG tablet 1 tab PO DAILY omeprazole 20 MG capsule 20 mg PO DAILY pravastatin 20 MG tablet 20 mg PO DAILY amlodipine [Norvasc] 5 mg tablet 5 mg PO DAILY Qty: 30 0RF amlodipine [Norvasc] 5 mg tablet 5 mg PO DAILY 30 Days Qty: 30 0RF prednisone 20 mg tablet 20 mg PO DAILY 5 Days Qty: 5 0RF Primary Care Provider: Christie Martinez Referrals: Christie Martinez MD [Primary Care Provider] - 1 Week if not improving Activity Restrictions/Additional Instructions: Plenty of fluids and rest. Warm salt water gargling. Tylenol for fever and body aches. Follow-up with your doctor if not improving or return if worse. Disposition Disposition: Home, Self Care
== END 2023-01-21 12:45 | disposition home or self-care (01) ==
PROVIDERS: Emergency Provider Emergency Medicine; PCP Internal Medicine; Visit Provider Emergency Medicine
DX: U07.1 COVID-19 (principal); F03.90 Unspecified dementia, unspecified severity, without behavioral disturbance, psychotic disturbance, mood disturbance, and anxiety; I10 Essential (primary) hypertension
CPT/HCPCS: 87428; 87880; 99282

== ENCOUNTER 2023-09-24 10:38 | Observation (INO) | payer MEDICARE, SELFPAY ==
[2023-09-24] VITALS (10 sets, daily range): BP systolic 98–162; BP diastolic 56–72; PULSE 54–94; RESP 16–18; TEMP 35.8–36.4; O2SAT 84–98; BMI 25.8
--- NOTE | 2023-09-24 11:02 | EKG12_ITS ---
Test Reason : DYSRHYTHMIA Blood Pressure : / mmHG Vent. Rate : 096 BPM Atrial Rate : 096 BPM P-R Int : 170 ms QRS Dur : 088 ms QT Int : 394 ms P-R-T Axes : 052 065 038 degrees QTc Int : 497 ms Sinus rhythm with Premature atrial complexes Nonspecific ST and T wave abnormality Abnormal ECG Confirmed by KENTON BOYD, DAVID ([id number]), manuscript editor SRINIVASA MCNEAL ([id number]) on 09/25/2023 9:30:12 AM Referred By: DANIELLE MONSALVE Confirmed By:DAVID FUNG MD
--- NOTE | 2023-09-24 11:02 | CT_ITS ---
STUDY: CT ABDOMEN AND PELVIS WITH CONTRAST REASON FOR EXAM: Female, 77 years old. Acute onset of abdominal pain. Hypertension. RADIATION DOSAGE (If Supplied By Facility): CTDIvol = ( 12.61 ) mGy, DLP = ( 975.44 ) mGycm TECHNIQUE: Transaxial images were obtained from the dome of the diaphragm to the symphysis pubis without oral contrast. IV 100mL Isovue-300 was administered. Sagittal and coronal images were reconstructed. Individualized dose optimization techniques were used for this CT. COMPARISON: None. FINDINGS: Mild degree of increased markings at the lung bases suggestive of linear atelectasis and/or scarring. Coronary artery calcification. Mild degree of central intrahepatic ductal dilatation. There is a 7.4 mm cyst in the anterior aspect of the left lobe of the liver. The gallbladder is distended. There is evidence of a 1.8 cm gallstone in the region of the neck of the gallbladder. Normal spleen. There is diffuse atrophy of the pancreas. Normal bilateral adrenal glands. Normal right kidney. There is a 2 mm nonobstructive calculus in the posterior mid pole calyx of the left kidney. Normal visualized stomach. Normal small intestine. Nonspecific thickening of the descending colon and a portion of the sigmoid colon. Colitis should be ruled out. The appendix is visualized and appears normal. There is diffuse atherosclerotic calcification of the abdominal aorta and its major visceral branches, without a demonstrated aneurysm. Normal inferior vena cava. Normal retroperitoneum. Normal urinary bladder. There is a right-sided inguinal hernia containing adipose tissue. There are diffuse degenerative changes of the visualized lumbar spine. CT/Abdomen/Pelvis W IV Cont ONLY IMPRESSION: There is a distended gallbladder with a stone in the region of the neck of the gallbladder. Mild degree of central intrahepatic biliary ductal dilatation. Small cyst in the left lobe of the liver. Findings suggestive of colitis of the descending colon and sigmoid colon. Electronically Signed: Fili Orr MD at 13:01 EDT ,
[2023-09-24 11:14] LABS: Mucous, Urine 0 SEEN /hpf (<or=2+)
[2023-09-24] MEDS: 0.9% Normal Saline (1000mL) 1,000 ML 999 ML IV (11:19)
[2023-09-24] MEDS: DiphenhydrAMINE 50 MG/ML Syringe 25 MG IV (11:19)
[2023-09-24 11:20] LABS: Absolute Lymphocyte Count 0.14 X10^3/uL (0.83-4.51); Absolute Neutrophil Count 0.9 X10^3/uL (2.0-7.7); Hematocrit 40.4 % (37-47); Hemoglobin 13.4 g/dL (12.0-15.0); Lymphocyte # 0.14 X10^3/ul (0.83-4.51); Lymphocyte % 13.1 % (19-41); Mean Corp Hgb Conc 33.2 g/dL (32-36); Mean Corpuscular Hgb 31.5 pg (27.0-32.0); Mean Corpuscular Volume 94.8 fL (81-99); Mean Platelet Vol. 8.9 fl (6.2-12.0); Monocyte# 0.02 X10^3/uL; Monocyte% 1.9 % (0-10); NRBC Flagged by Analyzer 0 % (0-5); Neutrophil % 84.1 % (47-70); POSITIVE COUNT YES; POSITIVE DIFFERENTIAL YES; POSITIVE MORPHOLOGY YES; Platelet Count 148 K/mm3 (150-450); RBC Distribution Width CV 12.3 % (11.6-14.6); RBC Distribution Width SD 42.9 fl (35.1-43.9); Red Blood Count 4.26 M/mm3 (4.2-5.4)
[2023-09-24] MEDS: MethylPREDNISolone 125 MG/2 ML Vial IV (11:20)
[2023-09-24] MEDS: Ondansetron 4 MG/2 ML Vial IV (11:20)
[2023-09-24 11:25] LABS: Differential Indicated SCAN CRITERIA MET; White Blood Count 1.1 K/mm3 (4.4-11.0)
[2023-09-24 11:25] LABS: Color, Urine Yellow (Yellow); Glucose, Dipstick Normal (Normal); Ketone-Dipstick Negative (Negative); Leukocyte Esterase-Dipstick Negative /ul (Negative); Nitrite-Dipstick Positive (Negative); Occult Blood-Urine 25 /ul (Negative); Protein-Dipstick 15 mg/dl (Negative); Urine Bilirubin Dipstick Negative (Negative); Urine Clarity Clear (Clear); Urine Urobilinogen Normal (Normal)
--- NOTE | 2023-09-24 11:30 | ED.VIS.GI ---
HPI HPI - GI History of Present Illness Chief Complaint: Abd Pain Narrative Narrative: Patient is a 77-year-old female with past medical history hypertension who presented to the emergency department with chief complaint of abdominal pain. Patient states that yesterday evening she started to develop some nausea and noted that late last night and into the morning she noted that she had some abdominal pain. Patient states that she had a lot of seeds and is concerned that may be she developed diverticulitis from eating too many seeds. She notes that she had a large bowel movement prior to her arrival here today and noted that she started to feel better afterwards and had less nausea. She states that she did not look at her stool and did not believe that she had any blood in her stool. Patient denies any recent sick contacts. Patient rates her pain a 4 out of 10. [facility] Medical History (Updated 09/24/23 @ 14:12 by Angelia Hector) Alzheimer dementia Dementia Hypertension Home Medications ?Medication ?Instructions ?Recorded ?Last Taken ?Type omeprazole 20 mg capsule,delayed 20 mg PO DAILY 08/27/13 Unknown History release pravastatin 20 mg tablet 20 mg PO DAILY 08/27/13 Unknown History amlodipine 5 mg tablet (Norvasc) 5 mg PO DAILY #30 tabs 05/05/21 Unknown Rx amlodipine 5 mg tablet (Norvasc) 5 mg PO DAILY 30 days #30 tabs 11/04/21 Unknown Rx memantine 10 mg tablet 10 mg PO DAILY 09/24/23 Unknown History oxybutynin chloride 5 mg tablet 5 mg PO DAILY 09/24/23 Unknown History venlafaxine 150 mg 150 mg PO DAILY 09/24/23 Unknown History capsule,extended release 24 hr (Effexor XR) Allergy/AdvReac Type Severity Reaction Status Date / Time iodine Allergy Swelling Verified 09/24/23 10:42 shellfish derived Allergy Rash Verified 09/24/23 10:42 Social History Smoking Status: Never smoker ROS ROS ED ROS Narrative Constitutional: Denies any fevers, chills, headaches, Seth, dizziness Eyes: Denies any changes with double vision blurry vision Cardiovascular: Denies chest pain or palpitations Respiratory: Denies cough or wheezing shortness of breath Abdomen: Complains of abdominal pain and nausea as noted above denies vomiting or previous abdominal surgeries : Denies any urinary symptoms Neurological: Denies numbness, weakness, tingling Musculoskeletal: Denies back pain Skin: Denies rashes or lesions EXAM Physical Exam Narrative Exam Narrative: general: Patient lying in bed rest comfortably did not appear to be in acute distress Head: Atraumatic, normocephalic Eyes: PERRL bilaterally, EOMI bilaterally, no conjunctival injection noted Neck: Soft, supple, trachea midline Cardiovascular: Regular rate and rhythm no murmurs gallops rubs noted Respiratory: Clear to auscultation bilaterally no rales rhonchi or wheeze noted Abdomen: Soft, nondistended, minimal tenderness palpation throughout her abdomen no rebound or guarding on exam, bowel sounds present x 4 Extremities: +5/5 strength noted in the bilateral upper and lower extremities, no pedal edema neuroexam Neurological: Patient following commands and that she is at [facility] year is 2023 Skin: Warm, dry, intact Const Vital Signs: 09/24/23 10:39 09/24/23 13:03 09/24/23 13:12 Temperature 96.9 F L Temperature Source Oral Pulse Rate 87 Respiratory Rate 16 Blood Pressure 162/56 H Blood Pressure Mean 91 Pulse Ox 95 84 93 Oxygen Delivery Method Room Air Room Air Nasal Cannula Oxygen Flow Rate (L/min) 2 09/24/23 13:12 09/24/23 15:00 Temperature Temperature Source Pulse Rate 94 78 Respiratory Rate 18 18 Blood Pressure 133/64 H 130/72 H Blood Pressure Mean 87 91 Pulse Ox 93 98 Oxygen Delivery Method Nasal Cannula Nasal Cannula Oxygen Flow Rate (L/min) 2 2 MDM MDM MDM Narrative Medical decision making narrative: Patient is a 77-year-old female who presented to the emergency department with a chief complaint of abdominal pain. Patient will have a workup performed here on the differential diagnose includes but limited to ACS, pneumonia, UTI, pyelonephritis, pancreatitis, small bowel obstruction, diverticulitis. Once workup is obtained reviewed she will be reevaluated. Patient given IV fluids and Zofran. Patient states that she does not need pain medication at this point time. Patient's CBC reviewed and showed white blood count of 1.1 this was repeated and showed a white blood count 1.1. Patient's hemoglobin stable at 13.1, platelet count was noted to be 155, patient's absolute neutrophil count was 1.1 with a absolute lymphocyte count of 0.11 which is new for her. Patient sodium normal 142, potassium normal 3.5, creatinine normal at 0.88. Patient's lipase normal at 19. Patient urinalysis showed positive nitrates negative leukocyte esterase 0-5 white blood cells with 4+ bacteria patient will be given a gram of Rocephin. Patient's CT abdomen pelvis was reviewed and showed a distended gallbladder with a stone in the region of the neck of the gallbladder mild degree of central intrahepatic biliary ductal dilation. Findings suggestive of colitis of the descending colon and sigmoid colon. I went and reevaluated the patient and patient had some tenderness to palpation in the right upper quadrant with her CT findings therefore added on a ultrasound which was also reviewed and showed no evidence of acute cholecystitis. She had distended gallbladder and gallstones no pericholecystic fluid or gallbladder wall thickening. I was notified earlier on that the patient had an episode hypoxia she was placed on nasal cannula. While later we reevaluated the patient and took her off oxygen as she is not normally on oxygen and she was noted to desaturate to the high 80s again therefore she was placed back on nasal cannula. I went and discussed the findings with the family and they had concerns about the patient's speech being off. Patient did receive Benadryl and Solu-Medrol prior to her CT abdomen pelvis with IV contrast secondary to iodine allergy. Brief performed a NIH stroke scale and NIH was 0 GCS of 15 she was able to tell me that she was at [facility] that the year was 2023 and she repeated no if's and's or but. Patient had sensation grossly intact. She was able to hold both of her lower extremities and both of her upper extremities in the air without any difficulty. She completed the finger-nose test bilaterally without any difficulty. Patient had no nystagmus noted on exam. At this point time do believe the patient warrants admission to the hospital for her hypoxia. Did discuss case with Dr. Phillips who will accept the patient for admission. She is requesting adding on a head CT which was added on as well as a chest x-ray and COVID test these were all added on. I notified the family of the plan and they are agreeable with this all question concerns were answered. Lab Data Labs: Laboratory Results - last 24 hr 09/24/23 09/24/23 09/24/23 11:05 11:11 11:59 WBC 1.1 L* 1.3 L* RBC 4.26 4.20 Hgb 13.4 13.1 Hct 40.4 40.5 MCV 94.8 96.4 MCH 31.5 31.2 MCHC 33.2 32.3 RDW Std Deviation 42.9 43.5 RDW Coeff of Gabriella 12.3 12.4 Plt Count 148 L 155 MPV 8.9 9.2 Immature Gran % (Auto) 0.900 0.000 Neut % (Auto) 84.1 H 90.5 H Lymph % (Auto) 13.1 L 8.7 L Campbell % (Auto) 1.9 0.8 Eos % (Auto) 0.0 0.0 Baso % (Auto) 0.0 0.0 Absolute Neuts (auto) 0.9 L 1.1 L Absolute Lymphs (auto) 0.14 L 0.11 L Nucleated RBC % 0 0 Differential Comment SCANNED Diff Path Review May foll May foll Toxic Granulation 1+ Sodium 142 Potassium 3.5 Chloride 107 Carbon Dioxide 29.0 Anion Gap 6 BUN 22 H Creatinine 0.88 Estim Creat Clear Calc 59.53 Est GFR (MDRD) Af Amer 80 Est GFR (MDRD) Non-Af 66 BUN/Creatinine Ratio 24.9 H Glucose 149 H Calcium 9.4 Total Bilirubin 0.80 AST 28 ALT 25 Alkaline Phosphatase 68 Troponin I High Sens 10 Total Protein 7.5 Albumin 4.0 Globulin 3.5 Albumin/Globulin Ratio 1.1 Lipase 19 Urine Color Yellow Urine Clarity Clear Urine pH 7.0 Ur Specific [place] 1.010 Urine Protein 15 H Urine Glucose (UA) Normal Urine Ketones Negative Urine Occult Blood 25 H Urine Nitrite Positive H Urine Bilirubin Negative Urine Urobilinogen Normal Ur Leukocyte Esterase Negative Urine RBC 0-5 SEEN Urine WBC 0-5 SEEN Ur Squamous Epith Cells 0-5 SEEN Urine Bacteria 4+ Urine Mucus 0 SEEN Radiography Diagnostic Testing: Clinical Impression(s) from Imaging Studies Abdomen/Pelvis CT 09/24/23 11:02 IMPRESSION: There is a distended gallbladder with a stone in the region of the neck of the gallbladder. Mild degree of central intrahepatic biliary ductal dilatation. Small cyst in the left lobe of the liver. Findings suggestive of colitis of the descending colon and sigmoid colon. Electronically Signed: Fili Orr MD at 13:01 EDT , Abdomen Ultrasound 09/24/23 13:31 IMPRESSION: Distended gallbladder with gallstones. No pericholecystic fluid or gallbladder wall thickening. Negative sonographic Morris''s sign. Mild right hydronephrosis. Review of the CT performed earlier today demonstrates a 1 mm stone at the right ureterovesicular junction (image 109 series 2) with mild right hydroureteronephrosis. Electronically Signed: Shay Smallwood MD at 15:38 EDT , Discharge Plan Triage Chief Complaint: Abd Pain ED Provider: Simone Gray Dx/Rx/DC Orders Primary Care Provider: Christie Martinez
[2023-09-24 11:35] LABS: ALB/GLOB Ratio 1.1 RATIO (0.9-2.4); AST(SGOT) 28 U/L (15-37); Alanine Aminotransfer ALT/SGPT 25 U/L (13-56); Alkaline Phosphatase 68 U/L (45-117); Anion Gap 6 (5-15); BUN 22 mg/dL (7-18); BUN/Creat Ratio 24.9 RATIO (10-20); Calcium,Total 9.4 mg/dL (8.5-10.1); Chloride 107 mmol/L (98-107); Creatinine, Serum 0.88 mg/dL (0.55-1.02); EST Glomerular Filtration Rate 66 mL/min (>60); Est Glom Filt Rate - Afr Amer 80 mL/min (>60); Estimated Creatinine Clearance 59.53 ml/min; Globulin 3.5 g/dL (2.2-4.2); Glucose 149 mg/dL (74-106); Lipase 19 U/L (13-75); Potassium 3.5 mmol/L (3.5-5.1); Protein, Total 7.5 g/dL (6.4-8.2); Sodium Level 142 mmol/L (136-145); Troponin-I HS 10 pg/mL (3.0-54.0)
[2023-09-24 12:03] LABS: Bacteria 4+ /hpf (None Seen); Red Blood Cells-Urine 0-5 SEEN /hpf (0-5); Squamous Epithelial Cells - UA 0-5 SEEN /hpf (5-10); White Blood Cells 0-5 SEEN /hpf (0-5)
[2023-09-24 12:17] LABS: Absolute Lymphocyte Count 0.11 X10^3/uL (0.83-4.51); Absolute Neutrophil Count 1.1 X10^3/uL (2.0-7.7); Hematocrit 40.5 % (37-47); Hemoglobin 13.1 g/dL (12.0-15.0); Lymphocyte # 0.11 X10^3/ul (0.83-4.51); Lymphocyte % 8.7 % (19-41); Mean Corp Hgb Conc 32.3 g/dL (32-36); Mean Corpuscular Hgb 31.2 pg (27.0-32.0); Mean Corpuscular Volume 96.4 fL (81-99); Mean Platelet Vol. 9.2 fl (6.2-12.0); Monocyte# 0.01 X10^3/uL; Monocyte% 0.8 % (0-10); NRBC Flagged by Analyzer 0 % (0-5); Neutrophil # 1.14 X10^3/uL (2.7-7.7); Neutrophil % 90.5 % (47-70); POSITIVE COUNT YES; POSITIVE DIFFERENTIAL YES; POSITIVE MORPHOLOGY YES; Platelet Count 155 K/mm3 (150-450); RBC Distribution Width CV 12.4 % (11.6-14.6); RBC Distribution Width SD 43.5 fl (35.1-43.9)
[2023-09-24 12:57] LABS: Differential Indicated SCAN CRITERIA MET
[2023-09-24 12:58] LABS: White Blood Count 1.3 K/mm3 (4.4-11.0)
--- NOTE | 2023-09-24 13:31 | US_ITS ---
STUDY: ABDOMINAL ULTRASOUND - RIGHT UPPER QUADRANT REASON FOR VISIT: Female, 77 years old. Right upper quadrant pain. TECHNIQUE: Ultrasound evaluation of the right upper quadrant was performed with real-time and static barragan-scale imaging. TECHNICAL QUALITY: Limited by bowel gas. COMPARISON: CT dated 09/24/2023 FINDINGS: Liver: The liver measures 16.5 cm. There is normal echogenicity of the liver. The bile ducts are within normal limits. There is hepatic color flow. The direction of portal flow is hepatopetal. There is no demonstrated mass lesion. Gallbladder: The gallbladder is distended. The gallbladder wall measures 2 mm. There is a negative sonographic Morris''s sign. There is no pericholecystic fluid. There are no gallstones. Common Bile Duct (C.B.D.): The common bile duct measures 7 mm. Pancreas: There is nonvisualization of the pancreas. Right Kidney: Normal size of the right kidney. The right kidney measures 10.2 cm. Normal renal cortex. There is no demonstrated renal mass or cyst. There is mild hydronephrosis of the right kidney. US/Abdomen Limited IMPRESSION: Distended gallbladder with gallstones. No pericholecystic fluid or gallbladder wall thickening. Negative sonographic Morris''s sign. Mild right hydronephrosis. Review of the CT performed earlier today demonstrates a 1 mm stone at the right ureterovesicular junction (image 109 series 2) with mild right hydroureteronephrosis. Electronically Signed: Shay Smallwood MD at 15:38 EDT ,
[2023-09-24 13:49] LABS: Differential Comment SCANNED; Toxic Granulation 1+
--- NOTE | 2023-09-24 16:38 | CT_ITS ---
STUDY: CT BRAIN WITHOUT CONTRAST REASON FOR EXAM: Female, 77 years old. ams RADIATION DOSAGE (If Supplied By Facility): CTDIvol = ( 47.06 ) mGy, DLP = ( 925.62 ) mGycm TECHNIQUE: Transaxial CT imaging of the brain was performed without administration of intravenous contrast material. Individualized dose optimization techniques were used for this CT. COMPARISON: No relevant priors. FINDINGS: Normal soft tissue structures. Normal calvarium. Normal size ventricles and extra-axial spaces for the patient''s age. Normal white matter tracts of the cerebral hemispheres. Normal basal ganglia and thalami. Normal brainstem. Normal cerebellum. There is no intracranial hemorrhage. There are no findings of an acute ischemic infarction. Normal visualized paranasal sinuses. CT/Brain/Head without Contrast IMPRESSION: Normal unenhanced CT scan of the brain. Electronically Signed: Darío Prieto MD at 17:30 EDT ,
--- NOTE | 2023-09-24 16:47 | ED.RN ---
Angelia THAKUR called Dr Ortega's office for information. Per the office, patient had 2 appointments set up and she had cancelled both appointments. Dr Ortega has never seen the patient.
--- NOTE | 2023-09-24 17:00 | RAD_ITS ---
STUDY: X-RAY CHEST REASON FOR EXAM: Female, 77 years old. sob, hypoxia TECHNIQUE: Frontal and lateral views of the chest. COMPARISON: None. FINDINGS: The lungs are clear and expanded. There is no demonstrated pleural abnormality. Normal size heart. Normal mediastinum and eve. Normal visualized pulmonary arteries. Normal visualized aortic arch and descending thoracic aorta. There are diffuse degenerative changes of the visualized thoracic spine. Compression plate and screws seen of the proximal left humerus. There is no demonstrated abnormality of the visualized soft tissue structures of the upper abdomen. RAD/Chest PA and Lateral IMPRESSION: Normal x-ray examination of the chest. Electronically Signed: Darío Prieto MD at 17:24 EDT ,
--- NOTE | 2023-09-24 17:29 | HP.PCM.HOS_ITS ---
HPI - General General Date of Admission: 09/24/23 Date of Service: 09/24/23 Chief Complaint: Abd pain HPI Narrative IRENE DIGGS, is a 77-year-old female history of hypertension, dementia, GERD, mood disorder who presented to [facility] ED 09/24/2023 with abdominal pain and nausea that started yesterday evening and into the morning. Had a bowel movement prior to arrival and felt somewhat better afterwards and had less nausea and no blood in her stool but due to continued pain patient presented to ED. Lab workup showed UA with 4+ bacteria and nitrate but no leuk esterase or white blood cells, CBC showed white blood cell count of 1.1 but otherwise lab workup unremarkable so abdominal CT obtained. This showed distended gallbladder with stone in region of the neck with some mild intrahepatic biliary duct dilation and also findings suggestive of colitis of descending colon and sigmoid colon. Abdominal ultrasound obtained due to gallbladder findings which showed distended gallbladder with gallstones but no gallbladder wall thickening or pericholecystic fluid and negative sonographic Morris sign but did show mild right hydronephrosis with a 1 mm stone at the right ureterovesicular junction. Additionally ED patient noted to be hypoxic at 84% on room air unclear etiology. Hospitalist contacted for admission for the above reasons. Patient evaluated at bedside and family not currently present. Patient received Benadryl prior to her CT scan so has difficulty staying on topic or answering ROS. Talked about her psych medications and that she had to change psychiatrists and about family visiting from out of town but had difficulty verbalizing why she was in the hospital. Denied any present abdominal pain or other current complaints [facility] Medical History (Updated 09/24/23 @ 17:[address] Joann Phillips MD) Alzheimer dementia Dementia Hypertension Home Medications ?Medication ?Instructions ?Recorded ?Last Taken ?Type omeprazole 20 mg capsule,delayed 20 mg PO DAILY 08/27/13 Unknown History release pravastatin 20 mg tablet 20 mg PO DAILY 08/27/13 Unknown History amlodipine 5 mg tablet (Norvasc) 5 mg PO DAILY #30 tabs 05/05/21 Unknown Rx amlodipine 5 mg tablet (Norvasc) 5 mg PO DAILY 30 days #30 tabs 11/04/21 Unknown Rx memantine 10 mg tablet 10 mg PO DAILY 09/24/23 Unknown History oxybutynin chloride 5 mg tablet 5 mg PO DAILY 09/24/23 Unknown History venlafaxine 150 mg 150 mg PO DAILY 09/24/23 Unknown History capsule,extended release 24 hr (Effexor XR) Allergy/AdvReac Type Severity Reaction Status Date / Time iodine Allergy Swelling Verified 09/24/23 10:42 shellfish derived Allergy Rash Verified 09/24/23 10:42 Social History Smoking Status: Never smoker ROS ROS Narrative Patient seems to be unreliable historian at this time, unclear how accurate ROS is General: Denies fever/chills HENT: Denies headache, denies stuffy nose, denies sore throat EYES: Denies changes in vision Resp: Denies cough, denies shortness of breath Cardiac: Denies chest pain GI: Denies any current abdominal pain, denies changes in bowel, denies nausea/vomiting : Denies changes in urination Extremity: Denies swelling MSK: Denies weakness Neuro: Denies any numbness/tingling Heme: Denies any bleeding or bruising Skin: Denies rashes Psychiatric: No complaints voiced Vital Signs Vital Signs Vital Signs: 09/24/23 10:39 09/24/23 13:03 09/24/23 13:12 Temperature 96.9 F L Temperature Source Oral Pulse Rate 87 Respiratory Rate 16 Blood Pressure 162/56 H Blood Pressure Mean 91 Pulse Ox 95 84 93 Oxygen Delivery Method Room Air Room Air Nasal Cannula Oxygen Flow Rate (L/min) 2 09/24/23 13:12 09/24/23 15:00 09/24/23 17:00 Temperature Temperature Source Pulse Rate 94 78 88 Respiratory Rate 18 18 18 Blood Pressure 133/64 H 130/72 H 130/57 H Blood Pressure Mean 87 91 81 Pulse Ox 93 98 95 Oxygen Delivery Method Nasal Cannula Nasal Cannula Nasal Cannula Oxygen Flow Rate (L/min) 2 2 2 Weight Weight: 84.4 kg Body Mass Index (BMI) 30.0 Physical Exam Narrative General: Somewhat sleepy but able to stay awake and answers questions though typically answers are unrelated to question HEENT: Atraumatic, normocephalic Eyes: Anicteric, normal conjunctiva, extraocular movements grossly intact Neck: Supple Respiratory: Clear to auscultation bilaterally, normal respiratory effort Cardiovascular: Regular rate and rhythm GI: Soft, nontender on my exam, no rebound, guarding, rigidity Extremities: No edema Musculoskeletal: Moving all extremities Neuro: No overt focal neurological deficits Skin: No rashes appreciated Psych: Cooperative Results Lab / Micro Data 09/24/23 11:59 09/24/23 11:11 Labs: Laboratory Results - last 24 hr 09/24/23 11:05: Urine Color Yellow, Urine Clarity Clear, Urine pH 7.0, Ur Specific [place] 1.010, Urine Protein 15 H, Urine Glucose (UA) Normal, Urine Ketones Negative, Urine Occult Blood 25 H, Urine Nitrite Positive H, Urine Bilirubin Negative, Urine Urobilinogen Normal, Ur Leukocyte Esterase Negative, Urine RBC 0-5 SEEN, Urine WBC 0-5 SEEN, Ur Squamous Epith Cells 0-5 SEEN, Urine Bacteria 4+, Urine Mucus 0 SEEN 09/24/23 11:11: WBC 1.1 L*, RBC 4.26, Hgb 13.4, Hct 40.4, MCV 94.8, MCH 31.5, MCHC 33.2, RDW Std Deviation 42.9, RDW Coeff of Gabriella 12.3, Plt Count 148 L, MPV 8.9, Immature Gran % (Auto) 0.900, Neut % (Auto) 84.1 H, Lymph % (Auto) 13.1 L, Bledsoe % (Auto) 1.9, Eos % (Auto) 0.0, Baso % (Auto) 0.0, Absolute Neuts (auto) 0.9 L, Absolute Lymphs (auto) 0.14 L, Nucleated RBC % 0, Diff Path Review June, Sodium 142, Potassium 3.5, Chloride 107, Carbon Dioxide 29.0, Anion Gap 6, BUN 22 H, Creatinine 0.88, Estim Creat Clear Calc 59.53, Est GFR (MDRD) Af Amer 80, Est GFR (MDRD) Non-Af 66, BUN/Creatinine Ratio 24.9 H, Glucose 149 H, Calcium 9.4, Total Bilirubin 0.80, AST 28, ALT 25, Alkaline Phosphatase 68, Troponin I High Sens 10, Total Protein 7.5, Albumin 4.0, Globulin 3.5, Albumin/Globulin Ratio 1.1, Lipase 19 09/24/23 11:59: WBC 1.3 L*, RBC 4.20, Hgb 13.1, Hct 40.5, MCV 96.4, MCH 31.2, MCHC 32.3, RDW Std Deviation 43.5, RDW Coeff of Gabriella 12.4, Plt Count 155, MPV 9.2, Immature Gran % (Auto) 0.000, Neut % (Auto) 90.5 H, Lymph % (Auto) 8.7 L, Bledsoe % (Auto) 0.8, Eos % (Auto) 0.0, Baso % (Auto) 0.0, Absolute Neuts (auto) 1.1 L, Absolute Lymphs (auto) 0.11 L, Nucleated RBC % 0, Differential Comment SCANNED, Diff Path Review June foll, Toxic Granulation 1+ Imaging Radiology Impression Abdomen/Pelvis CT 09/24/23 11:02 IMPRESSION: There is a distended gallbladder with a stone in the region of the neck of the gallbladder. Mild degree of central intrahepatic biliary ductal dilatation. Small cyst in the left lobe of the liver. Findings suggestive of colitis of the descending colon and sigmoid colon. Electronically Signed: Fili Orr MD at 13:01 EDT , Abdomen Ultrasound 09/24/23 13:31 IMPRESSION: Distended gallbladder with gallstones. No pericholecystic fluid or gallbladder wall thickening. Negative sonographic Morris''s sign. Mild right hydronephrosis. Review of the CT performed earlier today demonstrates a 1 mm stone at the right ureterovesicular junction (image 109 series 2) with mild right hydroureteronephrosis. Electronically Signed: Shay Smallwood MD at 15:38 EDT , Chest X-Ray 09/24/23 17:00 IMPRESSION: Normal x-ray examination of the chest. Electronically Signed: Darío Prieto MD at 17:24 EDT , Assessment & Plan Assessment/Plan (1) Abdominal pain: (2) Hypoxia: (3) Kidney stone: PLAN: Plan # Hypoxia of unclear etiology -84% on room air increased to 90s on 2 L -CXR unremarkable -Will check COVID and [employer] swab as if this is positive could also explain the leukopenia -On exam patient was low 90s on 2 L but when she would wake up and talk oxygenation improved, unclear if some of this could be due to sedation from needing Benadryl for CT scan -Evaluate for respiratory viruses as above, at present denies that she has been having any problems with cough or shortness of breath -If this does not improve or respiratory viruses negative can consider D-dimer or further workup -Does not appear fluid overloaded, will not obtain BNP at this time -Incentive spirometry #Abd pain -Abdominal pain since yesterday with nausea and vomiting, patient relatively poor historian but not having pain at this time and abdominal exam fairly benign -CT scan however showed colitis -Zosyn -IV fluids - liquid diet and advance as tolerated, if patient more awake and tolerating diet can likely DC home on oral antibiotics -Abdominal ultrasound with gallbladder distention and stones but no thickening or fluid -Will need oupt colonoscopy #Leukopenia -Unclear etiology or chronicity, repeat in the a.m., may need hematologic evaluation, may be able to do this outpt depending on labs and findings -Check COVID as above #R mild hydro w/ kidney stone -On abdominal ultrasound there was mild right hydronephrosis and CT demonstrated 1 mm stone at right ureterovesicular junction -Given there is mild hydro will start alpha-brittanie -IV fluids -Urine with nitrate and bacteria but no leuk esterase or white blood cells and 4 patient became confused does not sound there had been specific urinary complaints -Will await culture, pt being covered w/ abx as above #Dementia -On memantine -Pt did have some confusion and difficulty with her words after Benadryl for her scan in the ED so CT head obtained, suspect this is medication induced but awaiting results #Mood d/o NOS -Continue effexor #GERD -Continue PPI #Hypertension -Continue home medication #DVT ppx: Lovenox subcu Joann Phillips MD Time spent in the patient's overall evaluation,decision-making process, review of diagnostic data, adjustment of management, discussion with other providers, nursing nursing and ancillary staff involved in patient's care documentation, 57 minutes Charges/Coding Visit Charges Inpatient E&M: 79054 Init Hosp L2
[2023-09-24] MEDS: 0.9% Normal Saline (1000mL) 1,000 ML 75 ML IV (18:39)
[2023-09-24] MEDS: Piperacil/Tazobactam 4.5 GM in 0.9% Normal Saline (100mL MB+) 100 ML IV (18:39)
[2023-09-24] MEDS: Piperacil/Tazobactam 3.375 GM in 0.9% Normal Saline (50mL MB+) 50 ML IV (21:44)
[2023-09-25 04:45] VITALS: BP 130/57; PULSE 50; RESP 18; TEMP 36; O2SAT 96
[2023-09-25] MEDS: Piperacil/Tazobactam 3.375 GM in 0.9% Normal Saline (50mL MB+) 50 ML IV (04:53)
[2023-09-25 05:08] LABS: Absolute Lymphocyte Count 0.44 X10^3/uL (0.83-4.51); Absolute Neutrophil Count 11.1 X10^3/uL (2.0-7.7); Basophil# 0.03 X10^3/uL; Basophil% 0.2 % (0-1); Hematocrit 35.7 % (37-47); Hemoglobin 11.5 g/dL (12.0-15.0); Lymphocyte # 0.44 X10^3/ul (0.83-4.51); Lymphocyte % 3.6 % (19-41); Mean Corp Hgb Conc 32.2 g/dL (32-36); Mean Corpuscular Hgb 31.2 pg (27.0-32.0); Mean Corpuscular Volume 96.7 fL (81-99); Mean Platelet Vol. 9.8 fl (6.2-12.0); Monocyte# 0.63 X10^3/uL; Monocyte% 5.1 % (0-10); NRBC Flagged by Analyzer 0 % (0-5); Neutrophil # 11.08 X10^3/uL (2.7-7.7); Neutrophil % 90.3 % (47-70); POSITIVE DIFFERENTIAL YES; POSITIVE MORPHOLOGY YES; Platelet Count 140 K/mm3 (150-450); RBC Distribution Width CV 12.6 % (11.6-14.6); RBC Distribution Width SD 45.1 fl (35.1-43.9); Red Blood Count 3.69 M/mm3 (4.2-5.4); White Blood Count 12.3 K/mm3 (4.4-11.0)
[2023-09-25 05:56] LABS: AST(SGOT) 23 U/L (15-37); Alanine Aminotransfer ALT/SGPT 21 U/L (13-56); Albumin, Serum 3.3 g/dL (3.2-5.0); Alkaline Phosphatase 50 U/L (45-117); Anion Gap 3 (5-15); BUN 20 mg/dL (7-18); BUN/Creat Ratio 24.5 RATIO (10-20); Calcium,Total 8.6 mg/dL (8.5-10.1); Chloride 110 mmol/L (98-107); Creatinine, Serum 0.82 mg/dL (0.55-1.02); EST Glomerular Filtration Rate 72 mL/min (>60); Est Glom Filt Rate - Afr Amer 88 mL/min (>60); Estimated Creatinine Clearance 63.75 ml/min; Globulin 3.2 g/dL (2.2-4.2); Glucose 122 mg/dL (74-106); Potassium 4.3 mmol/L (3.5-5.1); Protein, Total 6.5 g/dL (6.4-8.2); Sodium Level 140 mmol/L (136-145); Thyroid Stim Hormone (TSH) 0.44 uIU/mL (0.358-3.74)
[2023-09-25 06:51] LABS: Differential Indicated SCAN CRITERIA MET
[2023-09-25 07:00] VITALS: PULSE 44
--- NOTE | 2023-09-25 07:26 | PN.HOSP_ITS ---
Reason for Visit Reason for Visit: Diagnoses Calculus of kidney (09/24/23) Hypoxemia (09/24/23) Unspecified abdominal pain (09/24/23) Objective Data Objective Data Vital Signs: Vital Signs Temp Pulse Resp BP Pulse Ox O2 Del Method O2 Flow Rate 96.8 F L 50 L 18 130/57 H 96 Room Air 2 09/25/23 04:45 09/25/23 04:45 09/25/23 04:45 09/25/23 04:45 09/25/23 04:45 09/25/23 04:45 09/24/23 17:00 Oxygen Flow Rate (L/min) 2 Oxygen Delivery Method Room Air Weight: 77.111 kg Body Mass Index (BMI) 25.8 Intake & Output: Intake and Output for Last 24 Hours 09/23/23 09/24/23 09/25/23 23:59 23:59 23:59 Intake Total 1100 / 1300 450 / 450 Balance 1100 / 1300 450 / 450 Lab / Micro Data 09/25/23 04:30 09/25/23 04:30 Labs: Laboratory Results - last 24 hr 09/24/23 11:05: Urine Color Yellow, Urine Clarity Clear, Urine pH 7.0, Ur Specific [place] 1.010, Urine Protein 15 H, Urine Glucose (UA) Normal, Urine Ketones Negative, Urine Occult Blood 25 H, Urine Nitrite Positive H, Urine Bilirubin Negative, Urine Urobilinogen Normal, Ur Leukocyte Esterase Negative, Urine RBC 0-5 SEEN, Urine WBC 0-5 SEEN, Ur Squamous Epith Cells 0-5 SEEN, Urine Bacteria 4+, Urine Mucus 0 SEEN 09/24/23 11:11: WBC 1.1 L*, RBC 4.26, Hgb 13.4, Hct 40.4, MCV 94.8, MCH 31.5, MCHC 33.2, RDW Std Deviation 42.9, RDW Coeff of Gabriella 12.3, Plt Count 148 L, MPV 8.9, Immature Gran % (Auto) 0.900, Neut % (Auto) 84.1 H, Lymph % (Auto) 13.1 L, [place] % (Auto) 1.9, Eos % (Auto) 0.0, Baso % (Auto) 0.0, Absolute Neuts (auto) 0.9 L, Absolute Lymphs (auto) 0.14 L, Nucleated RBC % 0, Diff Path Review June obed, Sodium 142, Potassium 3.5, Chloride 107, Carbon Dioxide 29.0, Anion Gap 6, BUN 22 H, Creatinine 0.88, Estim Creat Clear Calc 59.53, Est GFR (MDRD) Af Amer 80, Est GFR (MDRD) Non-Af 66, BUN/Creatinine Ratio 24.9 H, Glucose 149 H, Calcium 9.4, Total Bilirubin 0.80, AST 28, ALT 25, Alkaline Phosphatase 68, Troponin I High Sens 10, Total Protein 7.5, Albumin 4.0, Globulin 3.5, Albumin/Globulin Ratio 1.1, Lipase 19 09/24/23 11:59: WBC 1.3 L*, RBC 4.20, Hgb 13.1, Hct 40.5, MCV 96.4, MCH 31.2, MCHC 32.3, RDW Std Deviation 43.5, RDW Coeff of Gabriella 12.4, Plt Count 155, MPV 9.2, Immature Gran % (Auto) 0.000, Neut % (Auto) 90.5 H, Lymph % (Auto) 8.7 L, [place] % (Auto) 0.8, Eos % (Auto) 0.0, Baso % (Auto) 0.0, Absolute Neuts (auto) 1.1 L, Absolute Lymphs (auto) 0.11 L, Nucleated RBC % 0, Differential Comment SCANNED, Diff Path Review June obed, Toxic Granulation 1+ 09/25/23 04:30: WBC 12.3 H, RBC 3.69 L, Hgb 11.5 L, Hct 35.7 L, MCV 96.7, MCH 31.2, MCHC 32.2, RDW Std Deviation 45.1 H, RDW Coeff of Gabriella 12.6, Plt Count 140 L, MPV 9.8, Immature Gran % (Auto) 0.800, Neut % (Auto) 90.3 H, Lymph % (Auto) 3.6 L, [place] % (Auto) 5.1, Eos % (Auto) 0.0, Baso % (Auto) 0.2, Absolute Neuts (auto) 11.1 H, Absolute Lymphs (auto) 0.44 L, Nucleated RBC % 0, Sodium 140, Potassium 4.3, Chloride 110 H, Carbon Dioxide 27.0, Anion Gap 3 L, BUN 20 H, Creatinine 0.82, Estim Creat Clear Calc 63.75, Est GFR (MDRD) Af Amer 88, Est GFR (MDRD) Non-Af 72, BUN/Creatinine Ratio 24.5 H, Glucose 122 H, Calcium 8.6, Total Bilirubin 0.90, AST 23, ALT 21, Alkaline Phosphatase 50, Total Protein 6.5, Albumin 3.3, Globulin 3.2, Albumin/Globulin Ratio 1.0, TSH 0.44 Micro: Microbiology 09/24/23 19:40 Mucosa - Nasopharyngeal Respiratory Panel (PCR) - Final 09/24/23 16:46 Mucosa - Nose SARS-CoV-2, Influenza & RSV (PCR) - Final Radiography Diagnostic Testing: Radiology Impression Abdomen/Pelvis CT 09/24/23 11:02 IMPRESSION: There is a distended gallbladder with a stone in the region of the neck of the gallbladder. Mild degree of central intrahepatic biliary ductal dilatation. Small cyst in the left lobe of the liver. Findings suggestive of colitis of the descending colon and sigmoid colon. Electronically Signed: Fili Orr MD at 13:01 EDT , Abdomen Ultrasound 09/24/23 13:31 IMPRESSION: Distended gallbladder with gallstones. No pericholecystic fluid or gallbladder wall thickening. Negative sonographic Morris''s sign. Mild right hydronephrosis. Review of the CT performed earlier today demonstrates a 1 mm stone at the right ureterovesicular junction (image 109 series 2) with mild right hydroureteronephrosis. Electronically Signed: Shay Smallwood MD at 15:38 EDT , Brain CT 09/24/23 16:38 IMPRESSION: Normal unenhanced CT scan of the brain. Electronically Signed: Darío Prieto MD at 17:30 EDT , Chest X-Ray 09/24/23 17:00 IMPRESSION: Normal x-ray examination of the chest. Electronically Signed: Darío Prieto MD at 17:24 EDT , Physical Exam Narrative General: Somewhat sleepy but able to stay awake and answers questions though typically answers are unrelated to question HEENT: Atraumatic, normocephalic Eyes: Anicteric, normal conjunctiva, extraocular movements grossly intact Neck: Supple Respiratory: Clear to auscultation bilaterally, normal respiratory effort Cardiovascular: Regular rate and rhythm GI: Soft, nontender on my exam, no rebound, guarding, rigidity Extremities: No edema Musculoskeletal: Moving all extremities Neuro: No overt focal neurological deficits Skin: No rashes appreciated Psych: Cooperative Assessment & Plan Assessment/Plan (1) Abdominal pain: (2) Hypoxia: (3) Kidney stone: PLAN: Plan # Hypoxia of unclear etiology -84% on room air increased to 90s on 2 L -CXR unremarkable -Will check COVID and 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 as if this is positive could also explain the leukopenia -On exam patient was low 90s on 2 L but when she would wake up and talk oxygenation improved, unclear if some of this could be due to sedation from needing Benadryl for CT scan -Evaluate for respiratory viruses as above, at present denies that she has been having any problems with cough or shortness of breath -If this does not improve or respiratory viruses negative can consider D-dimer or further workup -Does not appear fluid overloaded, will not obtain BNP at this time -Incentive spirometry #Abd pain -Abdominal pain since yesterday with nausea and vomiting, patient relatively poor historian but not having pain at this time and abdominal exam fairly benign -CT scan however showed colitis -Zosyn -IV fluids - liquid diet and advance as tolerated, if patient more awake and tolerating diet can likely DC home on oral antibiotics -Abdominal ultrasound with gallbladder distention and stones but no thickening or fluid -Will need oupt colonoscopy #Leukopenia -Unclear etiology or chronicity, repeat in the a.m., may need hematologic evaluation, may be able to do this outpt depending on labs and findings -Check COVID as above #R mild hydro w/ kidney stone -On abdominal ultrasound there was mild right hydronephrosis and CT demonstrated 1 mm stone at right ureterovesicular junction -Given there is mild hydro will start alpha-brittanie -IV fluids -Urine with nitrate and bacteria but no leuk esterase or white blood cells and 4 patient became confused does not sound there had been specific urinary complaints -Will await culture, pt being covered w/ abx as above #Dementia -On memantine -Pt did have some confusion and difficulty with her words after Benadryl for her scan in the ED so CT head obtained, suspect this is medication induced but awaiting results #Mood d/o NOS -Continue effexor #GERD -Continue PPI #Hypertension -Continue home medication #DVT ppx: Lovenox subcu Joann Phillips MD Time spent in the patient's overall evaluation,decision-making process, review of diagnostic data, adjustment of management, discussion with other providers, nursing nursing and ancillary staff involved in patient's care documentation, 57 minutes
[2023-09-25 09:55] VITALS: BP 98/70; PULSE 64; RESP 16; TEMP 36.4; O2SAT 94
[2023-09-25] MEDS: Venlafaxine XR 150 MG Capsule PO (09:59)
[2023-09-25] MEDS: Enoxaparin 40 MG/0.4 ML Syringe SC (09:59)
[2023-09-25] MEDS: Oxybutynin 5 MG Tablet PO (09:59)
[2023-09-25] MEDS: Tamsulosin HCl 0.4 MG Capsule PO (09:59)
[2023-09-25] MEDS: Pantoprazole Sodium 20 MG Tablet PO (09:59)
[2023-09-25] MEDS: Memantine Hydrochloride 10 MG Tablet PO (09:59)
[2023-09-25 11:01] LABS: Pathologist Review Reviewed
[2023-09-25 11:01] LABS: Pathologist Review Reviewed
[2023-09-25] MEDS: amLODIPine 5 MG Tablet PO (11:08)
--- NOTE | 2023-09-25 11:59 | PCM.DC.SUM ---
Providers Date of Admission: 09/24/23 Date of Discharge: 09/25/23 Primary Care Physician: Dr. Johnie Anne MD Reason For Visit: HYPOXIA Diagnosis Discharge Diagnosis (1) Abdominal pain: Status: Acute Code(s): R10.9 - Unspecified abdominal pain (2) Hypoxia: Status: Acute Code(s): R09.02 - Hypoxemia (3) Kidney stone: Status: Acute Code(s): N20.0 - Calculus of kidney Plan Patient is a 77-year-old lady admitted with abdominal pain with associated nausea and vomiting. Imaging studies demonstrated distended gallbladder with stones but no thickening or fluid. Was also found to have colitis 1. Acute colitis ? Admitted to regular nursing floor managed with antibiotics patient symptoms did improve 2. Distended gallbladder with gallstones ? An outpatient follow-up was scheduled for the patient patient will follow-up with Dr. Rushing with general surgery on October 07 2. Acute hypoxia ? Possibly related to atelectasis did institute incentive spirometry 4. Leukopenia ? Resolved at the time of discharge 5. 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 Dementia ? Supportive care 7. Hypertension - Blood pressure controlled, home medications continued with dose adjustment as needed 8.Mood d/o NOS -Continue effexor 9. GERD -Continue PPI 10 DVT prophylaxis - On enoxaparin Medications at Discharge Home Medications omeprazole 20 mg capsule,delayed release 20 mg PO DAILY 08/27/13 pravastatin 20 mg tablet 20 mg PO DAILY 08/27/13 amlodipine 5 mg tablet (Norvasc) 5 mg PO DAILY #30 tabs 05/05/21 memantine 10 mg tablet 10 mg PO DAILY 09/24/23 oxybutynin chloride 5 mg tablet 5 mg PO DAILY 09/24/23 venlafaxine 150 mg capsule,extended release 24 hr (Effexor XR) 150 mg PO DAILY 09/24/23 ciprofloxacin HCl 500 mg tablet (Cipro) 500 mg PO BID #14 tabs 09/25/23 metronidazole 500 mg tablet 500 mg PO TID 7 days #21 tabs 09/25/23 tamsulosin 0.4 mg capsule 0.4 mg PO DAILY #30 caps 09/25/23 Hospital Course Summary of Care Provided Minutes Spent on Discharge: 32 Physical Exam Narrative GENERAL: cooperative HEENT: Atraumatic; normocephalic EYES; Anicteric, Normal Conjunctiva NECK; supple, normal thyroid, RESPIRATORY: Diminished to auscultation CARDIOVASCULAR: Regular S1 S2, GI: soft, normoactive bowel sounds, : No Renal angle tenderness; EXTREMITIES: No edema, no clubbing, MUSCULOSKELETAL: no muscle wasting NEURO: Awake; no lateralizing signs. SKIN: No Rash PSYCH; Flat affect Weight / BMI Weight Weight: 77.111 kg Body Mass Index (BMI) 25.8 ABG / Lab / Microbiology Data 09/25/23 04:30 09/25/23 04:30 Laboratory: Laboratory Results - last 24 hr 09/24/23 11:05: Urine RBC 0-5 SEEN, Urine WBC 0-5 SEEN, Ur Squamous Epith Cells 0-5 SEEN, Urine Bacteria 4+, Urine Mucus 0 SEEN 09/24/23 11:11: Diff Path Review Reviewed 09/24/23 11:59: WBC 1.3 L*, RBC 4.20, Hgb 13.1, Hct 40.5, MCV 96.4, MCH 31.2, MCHC 32.3, RDW Std Deviation 43.5, RDW Coeff of Gabriella 12.4, Plt Count 155, MPV 9.2, Immature Gran % (Auto) 0.000, Neut % (Auto) 90.5 H, Lymph % (Auto) 8.7 L, [place] % (Auto) 0.8, Eos % (Auto) 0.0, Baso % (Auto) 0.0, Absolute Neuts (auto) 1.1 L, Absolute Lymphs (auto) 0.11 L, Nucleated RBC % 0, Differential Comment SCANNED, Diff Path Review Reviewed, Toxic Granulation 1+ 09/25/23 04:30: WBC 12.3 H, RBC 3.69 L, Hgb 11.5 L, Hct 35.7 L, MCV 96.7, MCH 31.2, MCHC 32.2, RDW Std Deviation 45.1 H, RDW Coeff of Gabriella 12.6, Plt Count 140 L, MPV 9.8, Immature Gran % (Auto) 0.800, Neut % (Auto) 90.3 H, Lymph % (Auto) 3.6 L, [place] % (Auto) 5.1, Eos % (Auto) 0.0, Baso % (Auto) 0.2, Absolute Neuts (auto) 11.1 H, Absolute Lymphs (auto) 0.44 L, Nucleated RBC % 0, Sodium 140, Potassium 4.3, Chloride 110 H, Carbon Dioxide 27.0, Anion Gap 3 L, BUN 20 H, Creatinine 0.82, Estim Creat Clear Calc 63.75, Est GFR (MDRD) Af Amer 88, Est GFR (MDRD) Non-Af 72, BUN/Creatinine Ratio 24.5 H, Glucose 122 H, Calcium 8.6, Total Bilirubin 0.90, AST 23, ALT 21, Alkaline Phosphatase 50, Total Protein 6.5, Albumin 3.3, Globulin 3.2, Albumin/Globulin Ratio 1.0, TSH 0.44 Microbiology: Microbiology 09/24/23 11:04 Urine, Clean Catch Urine Culture - Preliminary GNR lactose corporate securities research analyst 09/24/23 19:40 Mucosa - Nasopharyngeal Respiratory Panel (PCR) - Final 09/24/23 16:46 Mucosa - Nose SARS-CoV-2, Influenza & RSV (PCR) - Final Radiography Diagnostic Testing: Radiology Impression Abdomen/Pelvis CT 09/24/23 11:02 IMPRESSION: There is a distended gallbladder with a stone in the region of the neck of the gallbladder. Mild degree of central intrahepatic biliary ductal dilatation. Small cyst in the left lobe of the liver. Findings suggestive of colitis of the descending colon and sigmoid colon. Electronically Signed: Fili Orr MD at 13:01 EDT , ADDENDUM: 09/25/23 0806 IMPRESSION: undefined Abdomen Ultrasound 09/24/23 13:31 IMPRESSION: Distended gallbladder with gallstones. No pericholecystic fluid or gallbladder wall thickening. Negative sonographic Morris''s sign. Mild right hydronephrosis. Review of the CT performed earlier today demonstrates a 1 mm stone at the right ureterovesicular junction (image 109 series 2) with mild right hydroureteronephrosis. Electronically Signed: Shay Smallwood MD at 15:38 EDT , Brain CT 09/24/23 16:38 IMPRESSION: Normal unenhanced CT scan of the brain. Electronically Signed: Darío Prieto MD at 17:30 EDT , Chest X-Ray 09/24/23 17:00 IMPRESSION: Normal x-ray examination of the chest. Electronically Signed: Darío Prieto MD at 17:24 EDT , D/C Instructions Discharge Diet: No restrictions Discharge Activity: Return to Normal Activity Call your doctor if you observe: Fever of 101 or Higher, Shortness of breath, Fainting spells and Chest pain Meaningful Use Info Meaningful Use Meaningful Use Diagnoses (Choose all that apply): None applicable Ischemic Stroke Statin Dosing Therapy Reference: STATIN DOSE THERAPY REFERENCE: * Patients > 75 years receive moderate or high dose statin therapy. * Patients 75 years or YOUNGER should receive HIGH intensity statin dose unless contraindicated. You will be required to document reason for non-treatment if statin daily dose does not meet guidelines. HIGH DOSE STATIN THERAPY DAILY Atorvastatin > than or = to 40 mg Rosuvastatin > than or = to 20 mg Amlodipine + Atorvastatin > than or = to 2.5/40 mg Ezetimibe + Simvastatin 10/80 mg Simvastatin 80mg Discharge Plan Admission Admit Date/Time: 09/24/23 17:30 Attending Provider: [place] Primary Care Provider: Johnie Anne Consulting Providers: Joann Phillips Discharge Orders/Prescriptions Prescriptions: New tamsulosin 0.4 mg Capsule 0.4 mg PO DAILY Qty: 30 0RF ciprofloxacin HCl [Cipro] 500 mg tablet 500 mg PO BID Qty: 14 0RF metronidazole 500 mg tablet 500 mg PO TID 7 Days Qty: 21 0RF Continued omeprazole 20 MG capsule 20 mg PO DAILY pravastatin 20 MG tablet 20 mg PO DAILY amlodipine [Norvasc] 5 mg tablet 5 mg PO DAILY Qty: 30 0RF oxybutynin chloride 5 mg tablet 5 mg PO DAILY memantine 10 mg tablet 10 mg PO DAILY venlafaxine [Effexor XR] 150 mg capsule,extended release 24hr 150 mg PO DAILY Discontinued amlodipine [Norvasc] 5 mg tablet 5 mg PO DAILY 30 Days Qty: 30 0RF Referrals / Follow Up: Christie Martinez MD [Med Staff - Job Setter [place]] - Within 1 Week Johnie Anne MD [Primary Care Provider] - Lolita Mosqueda MD [Med Staff - Active Staff] - 10/09/23 9:30 am Disposition Disposition (needs filled in before D/C Order can be placed): Home, Self Care Charges/Coding Visit Charges Inpatient E&M: 30072 Disch Hosp >30min
--- NOTE | 2023-09-25 12:45 | CASEMGMT ---
Patient has order for discharge. Patient has history of dementia. BLAZE DAVILA called son, Ramón, to update regarding discharge. Son is currently in [place] and states patient's sister is staying with the patient. Son denies needs at discharge but did inquire about CLERK OF SCALES, private duty list provided in discharge instructions. Son states he will call his aunt to supervisor picking crew patient for discharge. Son had no further questions or concerns.
[2023-09-25 13:09] VITALS: BP 116/52; PULSE 60; RESP 18; TEMP 36.9; O2SAT 95
--- NOTE | 2023-09-25 14:31 | PHA.DC_ITS ---
Pharmacy [place] [facility] has performed discharge medication reconciliation for this patient. Attempted to extension course counselor, did not see family in room. The patient's discharge medication list was reviewed for discrepancies and discrepancies were resolved. Medications at Discharge Home Medications omeprazole 20 mg capsule,delayed release 20 mg PO DAILY GERD 08/27/13 pravastatin 20 mg tablet 20 mg PO DAILY cholesterol 08/27/13 amlodipine 5 mg tablet (Norvasc) 5 mg PO DAILY blood pressure #30 tabs 05/05/21 memantine 10 mg tablet 10 mg PO DAILY memory 09/24/23 oxybutynin chloride 5 mg tablet 5 mg PO DAILY bladder 09/24/23 venlafaxine 150 mg capsule,extended release 24 hr (Effexor XR) 150 mg PO DAILY mood 09/24/23 ciprofloxacin HCl 500 mg tablet (Cipro) 500 mg PO BID #14 tabs 09/25/23 metronidazole 500 mg tablet 500 mg PO TID 7 days #21 tabs 09/25/23 tamsulosin 0.4 mg capsule 0.4 mg PO DAILY #30 caps 09/25/23
--- NOTE | 2023-09-25 14:46 | CHAPLAIN ---
Type of Pastoral Visit _x__ Initial Visit ___ Follow-up Visit ___ On-call Visit ___ General Patient Visit ___ Spiritual Assessment ___ Family Conference ___ Bereavement ___ Rapid Response ___ Code Blue ___ Other (describe below) Pastoral Care Referral From _x__ Patient ___ Family ___ Nurse ___ Physician ___ Studio Operation Engineer ___ Color Room Attendant ___ Other (describe below) Sacrament/Intervention ___ Active listening ___ Anointing ___ Gnosticism ___ Bereavement ___ Communion ___ [place]atha exploration ___ ___ Life review ___ Prayer ___ Reconciliation ___ Sacrament of Sick _x__ Supportive presence ___ Wedding ___ Other (describe below) Pastoral Comments patient is being discharged; family members are in the room; pt expresses gratitude for the great care given at this hospital and for the involvement of chaplains in giving support
== END 2023-09-25 12:07 | disposition home or self-care (01) ==
LOC: ED 16:54 → PCU 17:09
PROVIDERS: Admitting Provider Internal Medicine; Emergency Provider Emergency Medicine; PCP Student in an Organized Health Care Education/Training Program; Visit Provider Internal Medicine
DX: K52.9 Noninfective gastroenteritis and colitis, unspecified (principal); G30.9 Alzheimer's disease, unspecified; F02.80 Dementia in other diseases classified elsewhere, unspecified severity, without behavioral disturbance, psychotic disturbance, mood disturbance, and anxiety; R09.02 Hypoxemia; I10 Essential (primary) hypertension; Z79.899 Other long term (current) drug therapy; K21.9 Gastro-esophageal reflux disease without esophagitis; N13.2 Hydronephrosis with renal and ureteral calculous obstruction; F39 Unspecified mood [affective] disorder
CPT/HCPCS: 36415; 70450; 71046; 74177; 76705; 80053; 81001; 83690; 84443; 84484; 85025; 87077; 87086; 87088; 87186; 87631; 87633; 93005; 94668; 96361; 96365; 96366; 96372; 96375; 97161; 97166; 97802; 99221; 99252; 99284; J7030; Q9967; G0378; G0463; J2405

== ENCOUNTER 2024-12-05 17:01 | Emergency (ER) | payer MEDICARE, SELFPAY ==
[2024-12-05 17:02] VITALS: BP 91/65; PULSE 90; RESP 16; TEMP 36.8; O2SAT 98
[2024-12-05 19:30] VITALS: BP 172/80; PULSE 68; RESP 17; O2SAT 98
--- NOTE | 2024-12-05 19:35 | EKG12_ITS ---
Test Reason : DYSRHYTHMIA Blood Pressure : */* mmHG Vent. Rate : 64 BPM Atrial Rate : 64 BPM P-R Int : 244 ms QRS Dur : 98 ms QT Int : 424 ms P-R-T Axes : 116 41 53 degrees QTcB Int : 437 ms Sinus rhythm with 1st degree A-V block Otherwise normal ECG Confirmed by KENTON BOYD, DAVID ([id number]), newspaper editor SRINIVASA MCNEAL ([id number]) on 12/07/2024 8:24:36 AM Referred By: Confirmed By: DAVID FUNG MD
[2024-12-05 19:48] VITALS: BP 116/73; BP 160/71; BP 174/111; PULSE 55; PULSE 70; PULSE 74; BMI 26.6
[2024-12-05 19:55] LABS: Hematocrit 37.5 % (37-47); Hemoglobin 12.5 g/dL (12.0-15.0); Immature Granulocytes Count 0.020 X10^3/uL (0.0-0.0); Mean Corp Hgb Conc 33.3 g/dL (32-36); Mean Corpuscular Volume 94.0 fL (81-99); Mean Platelet Vol. 8.4 fl (6.2-12.0); NRBC Flagged by Analyzer 0 % (0-5); Platelet Count 249 K/mm3 (150-450); RBC Distribution Width CV 12.1 % (11.6-14.6); RBC Distribution Width SD 41.9 fl (35.1-43.9); Red Blood Count 3.99 M/mm3 (4.2-5.4); White Blood Count 5.4 K/mm3 (4.4-11.0)
--- NOTE | 2024-12-05 19:56 | CT_ITS ---
PROCEDURE: BRAIN/HEAD WITHOUT CONTRAST 12/05/2024 REASON FOR EXAM: FALL TECHNIQUE: Procedure Code: CTBR Modality: CT Procedure: BRAIN/HEAD WITHOUT CONTRAST Coronal and Sagittal reconstruction series were provided. One or more dose reduction techniques were used (e.g., Automated exposure control, adjustment of the mA and/or kV according to patient size, use of iterative reconstruction technique. RADIATION DOSE SUMMARY: CTDlvol: 44.99 mGy DLP: 812.98 mGycm COMPARISON: None FINDINGS: Brain: There is no region of significant vasogenic edema, mass effect, or midline shift. No evidence of acute intracranial hemorrhage. The ventricles are midline, without hydrocephalus. There is no extra-axial fluid collection. Hypoplastic right frontal sinus. The visualized paranasal sinuses are well aerated. No destructive skull lesion. CT/Brain/Head without Contrast IMPRESSION: No acute intracranial process Reading Location: [id number]
--- NOTE | 2024-12-05 20:00 | RAD_ITS ---
PROCEDURE: CHEST PA AND LATERAL 12/05/2024 REASON FOR EXAM: DIZZINESS TECHNIQUE: Procedure Code: RADCXR Modality: DX Procedure: CHEST PA AND LATERAL COMPARISON: None FINDINGS: The cardiomediastinal silhouette is within normal limits. There is no significant pleural effusion. No pneumothorax. No consolidation in either lung. Surgical hardware at the left humerus. RAD/Chest PA and Lateral IMPRESSION: No acute process in the chest Reading Location: [id number]
[2024-12-05 20:21] LABS: Anion Gap 9 (5-15); BUN 19 mg/dL (4-19); BUN/Creat Ratio 28.4 RATIO (10-20); Calcium,Total 9.4 mg/dL (7.6-11.0); Carbon Dioxide 28.6 mmol/L (21.0-32.0); Chloride 104 mmol/L (98-108); Estimated Creatinine Clearance 65.28 ml/min (50-250); Glucose 84 mg/dL (70-99); Potassium 3.7 mmol/L (3.3-5.1); Troponin T High Sensitivity 10 ng/L (<=14)
[2024-12-05] MEDS: 0.9% Normal Saline (1000mL) 1,000 ML 1000 ML IV (20:54)
[2024-12-05 21:17] LABS: Mucous, Urine 0 SEEN /hpf (<or=2+)
[2024-12-05 21:23] LABS: Color, Urine Yellow (Yellow); Glucose, Dipstick Normal (Normal); Ketone-Dipstick Negative (Negative); Leukocyte Esterase-Dipstick 500 /ul (Negative); Nitrite-Dipstick Positive (Negative); Occult Blood-Urine 10 /ul (Negative); Protein-Dipstick 30 mg/dl (Negative); Specific Gravity, Urine 1.015 (1.002-1.030); Urine Bilirubin Dipstick Negative (Negative)
[2024-12-05 22:07] LABS: Red Blood Cells-Urine 0-5 SEEN /hpf (0-5); Squamous Epithelial Cells - UA 0-5 SEEN /hpf (5-10)
[2024-12-05 22:43] LABS: Troponin T High Sens 2 HR 10 ng/L (<=14)
[2024-12-05 22:45] VITALS: BP 172/80; PULSE 68; RESP 17; TEMP 36.8; O2SAT 98
--- NOTE | 2024-12-05 22:51 | EX.ED.DYSGE1 ---
HPI History of Present Illness Chief Complaint: Fall Informant: patient and family Onset/Context/Timing Onset: Today Context: Sudden Onset Timing: Continuous Quality: Dizziness Location: Generalized Worsened by: Nothing Relieved by: Nothing Narrative Narrative: Patient presents after a fall that occurred today. Patient states she felt dizzy and then fell. Patient denies any loss of consciousness. Patient denies any injuries. Family is concerned as to the cause of the fall. Patient denies any spinning sensation. Patient states he just felt lightheaded. Patient denies hitting her head. Patient denies any chest pain or shortness of breath. Patient denies any nausea or vomiting. Patient denies any urinary complaints. [facility] Medical History Alzheimer dementia Dementia Hypertension Home Medications ?Medication ?Instructions ?Recorded ?Last Taken ?Type omeprazole 20 mg capsule,delayed 20 mg PO DAILY GERD 08/27/13 Unknown History release pravastatin 20 mg tablet 20 mg PO DAILY cholesterol 08/27/13 Unknown History amlodipine 5 mg tablet (Norvasc) 5 mg PO DAILY blood pressure #30 05/05/21 Unknown Rx tabs memantine 10 mg tablet 10 mg PO DAILY memory 09/24/23 Unknown History oxybutynin chloride 5 mg tablet 5 mg PO DAILY bladder 09/24/23 Unknown History venlafaxine 150 mg 150 mg PO DAILY mood 09/24/23 Unknown History capsule,extended release 24 hr (Effexor XR) cephalexin 500 mg capsule 500 mg PO Q6 #20 CAPSULES 12/05/24 Unknown Rx Allergy/AdvReac Type Severity Reaction Status Date / Time iodine Allergy Swelling Verified 12/05/24 17:05 shellfish derived Allergy Rash Verified 12/05/24 17:05 Surgical History (Updated 12/06/24 @ 01:[address] Javier Garza DO) S/P ORIF (open reduction internal fixation) fracture Social History Smoking Status: Never smoker ROS ROS ED Constitutional Constitutional ED: Denies chills or fever(s) Eyes Eyes: Denies blurry vision or change in vision ENT ENT ED: Denies rhinorrhea or sore throat Cardiovascular Cardiovascular: Denies chest pain or palpitations Respiratory/Chest Respiratory/Chest: Denies cough or dyspnea Gastrointestinal Gastrointestinal: Denies nausea or vomiting Genitourinary Genitourinary ED: Denies dysuria or hematuria Musculoskeletal Musculoskeletal: Denies back pain or neck pain Integumentary Denies abscess or rash Neurologic Neurologic: Denies headache(s) or weakness Allergic/Immunologic Allergic/Immunologic ED: Denies mouth swelling or urticaria EXAM Physical Exam Const Vital Signs: 12/05/24 17:02 12/05/24 19:30 12/05/24 19:30 Temperature 98.2 F Temperature Source Oral Pulse Rate 90 68 Pulse Rate [Lying] Pulse Rate [Sitting (for 1 minute prior to obtaining)] Pulse Rate [Standing (for 1 minute prior to obtaining)] Respiratory Rate 16 17 Respiratory Effort Normal Respiratory Depth Normal Respiratory Pattern Normal Blood Pressure 91/65 172/80 H Blood Pressure [Lying] Blood Pressure [Sitting (for 1 minute prior to obtaining)] Blood Pressure [Standing (for 1 minute prior to obtaining)] Blood Pressure Mean 73 110 Blood Pressure Mean [Lying] Blood Pressure Mean [Sitting (for 1 minute prior to obtaining)] Blood Pressure Mean [Standing (for 1 minute prior to obtaining)] Pulse Ox 98 98 Oxygen Delivery Method Room Air Room Air 12/05/24 19:48 12/05/24 22:45 Temperature 98.3 F Temperature Source Pulse Rate 68 Pulse Rate [Lying] 55 L Pulse Rate [Sitting (for 1 minute prior to obtaining)] 70 Pulse Rate [Standing (for 1 minute prior to obtaining)] 74 Respiratory Rate 17 Respiratory Effort Respiratory Depth Respiratory Pattern Blood Pressure 172/80 H Blood Pressure [Lying] 174/111 H Blood Pressure [Sitting (for 1 minute prior to obtaining)] 160/71 H Blood Pressure [Standing (for 1 minute prior to obtaining)] 116/73 Blood Pressure Mean 110 Blood Pressure Mean [Lying] 132 Blood Pressure Mean [Sitting (for 1 minute prior to obtaining)] 100 Blood Pressure Mean [Standing (for 1 minute prior to obtaining)] 87 Pulse Ox 98 Oxygen Delivery Method Positive well nourished and well developed General Appearance ED: well developed and NAD HEENT Reports moist mucous membranes Neck supple and no JVD Resp normal respiratory effort and clear to auscultation bilaterally Cardio regular rate and regular rhythm GI non-tender and non-distended Palpation: soft Extremity normal to inspection General Extremety ED: Negative for edema or tenderness General Extremity: Negative for edema Neuro CN's II-XII intact bilaterally and no sensory deficits noted Sensorium / Orientation: alert Motor Exam: strength 5/5 throughout Psych mental status grossly normal MDM MDM MDM Narrative Medical decision making narrative: Differential diagnosis includes near syncope, cardiac dysrhythmia, cardiac ischemia, pneumonia, bronchitis, electrolyte abnormality, urinary tract infection, stroke, and intracranial bleeding. CT scan of the brain will be obtained to assess for stroke intracranial bleeding. Chest x-ray will be obtained to assess for pneumonia or bronchitis. EKG will be obtained to assess for cardiac dysrhythmia and cardiac ischemia. CBC will be obtained to assess for leukocytosis and anemia. Basic metabolic profile will be obtained to assess for electrolyte abnormality and renal function. High-sensitivity troponin will be obtained to assess for cardiac ischemia. 2-hour repeat high-sensitivity troponin will be obtained to assess for ongoing cardiac ischemia. Lab Data Attestation: I reviewed the patient's lab results. Lab results narrative: CBC was reviewed and was within normal limits. Basic metabolic profile was reviewed and was within normal limits. Initial high-sensitivity troponin was reviewed and was normal at 10. 2-hour repeat high-sensitivity troponin was reviewed and was also normal at 10. Urinalysis was reviewed. Leukocyte esterase was 500. There are 25-50 white blood cells. There is 1+ bacteria. Labs: Laboratory Results - last 24 hr 12/05/24 12/05/24 12/05/24 19:43 21:10 22:02 WBC 5.4 RBC 3.99 L Hgb 12.5 Hct 37.5 MCV 94.0 MCH 31.3 MCHC 33.3 RDW Std Deviation 41.9 RDW Coeff of Gabriella 12.1 Plt Count 249 MPV 8.4 Immature Gran % (Auto) 0.400 Neut % (Auto) 57.8 Lymph % (Auto) 30.5 [place] % (Auto) 11.3 H Eos % (Auto) 0.0 Baso % (Auto) 0.0 Absolute Neuts (auto) 3.1 Absolute Lymphs (auto) 1.64 Nucleated RBC % 0 Sodium 141 Potassium 3.7 Chloride 104 Carbon Dioxide 28.6 Anion Gap 9 BUN 19 Creatinine 0.67 L Estim Creat Clear Calc 65.28 Est GFR (MDRD) Non-Af 90 BUN/Creatinine Ratio 28.4 H Glucose 84 Calcium 9.4 Troponin T High Sens 10 Troponin T Hi Sens 2 Hr 10 Urine Color Yellow Urine Clarity Cloudy Urine pH 6.0 Ur Specific [place] 1.015 Urine Protein 30 H Urine Glucose (UA) Normal Urine Ketones Negative Urine Occult Blood 10 H Urine Nitrite Positive H Urine Bilirubin Negative Urine Urobilinogen Normal Ur Leukocyte Esterase 500 H Urine RBC 0-5 SEEN Urine WBC 25-50 SEEN Ur Squamous Epith Cells 0-5 SEEN Urine Bacteria 1+ Urine Mucus 0 SEEN Radiography Diagnostic Testing: Clinical Impression(s) from Imaging Studies Brain CT 12/05/24 19:56 IMPRESSION: No acute intracranial process Reading Location: [facility] Chest X-Ray 12/05/24 20:00 IMPRESSION: No acute process in the chest Reading Location: [facility] EKG Initial EKG: Attestation: I personally reviewed and interpreted this EKG as follows: Interpretation: Sinus Rhythm, No Acute Injury Pattern and AV Block (First-degree AV block) Comments: EKG was obtained. On my independent interpretation, it showed a sinus rhythm with first-degree AV block with a rate of 64. ID interval was slightly prolonged at 244 ms. QRS interval was normal at 98 ms QTc interval was normal at 437 ms. [place] was normal. There are no acute ST or T wave changes. Prior EKG tracings: available for review Prior: Unchanged (09/24/2023) Treatment and Re-Evaluation :: Patient was given IV fluids. Patient with vies of her findings. Patient was given a dose of Keflex here. Patient given a prescription for Keflex. Patient was instructed to follow-up with primary care physician. Patient was instructed to drink plenty of fluids. Patient was instructed to return if worse in any way. Patient and family understood and were agreeable with plan. All questions were answered. Discharge Plan Triage Chief Complaint: Fall ED Provider: Javier Garza Dx/Rx/DC Orders Clinical Impression: Urinary tract infection, Dizziness Instructions: ED Dizziness, Uncertain Cause, ED Cystitis Female Adult Prescriptions: New cephalexin 500 mg capsule 500 mg PO Q6 Qty: 20 0RF No Action omeprazole 20 MG capsule 20 mg PO DAILY pravastatin 20 MG tablet 20 mg PO DAILY amlodipine [Norvasc] 5 mg tablet 5 mg PO DAILY Qty: 30 0RF oxybutynin chloride 5 mg tablet 5 mg PO DAILY memantine 10 mg tablet 10 mg PO DAILY venlafaxine [Effexor XR] 150 mg capsule,extended release 24hr 150 mg PO DAILY Primary Care Provider: Johnie Anne Referrals: Johnie Anne MD [Primary Care Provider, [facility]] - 5-7 Days Print Language: Estonian Disposition Disposition: Home, Self Care Discharge Date/Time: 12/05/24 22:59
== END 2024-12-05 22:59 | disposition home or self-care (01) ==
PROVIDERS: Emergency Provider Emergency Medicine; PCP Student in an Organized Health Care Education/Training Program; Visit Provider Emergency Medicine
DX: N39.0 Urinary tract infection, site not specified (principal); G30.9 Alzheimer's disease, unspecified; F02.80 Dementia in other diseases classified elsewhere, unspecified severity, without behavioral disturbance, psychotic disturbance, mood disturbance, and anxiety; R42 Dizziness and giddiness; I10 Essential (primary) hypertension
CPT/HCPCS: 70450; 71046; 80048; 81001; 84484; 85025; 93005; 96360; 99284; A4216